=== PATIENT | male | born 1955 | race Caucasian/White ===

== ENCOUNTER 2016-12-03 14:41 | Emergency (ER) | payer OTHER ==
[~2016-12-03 14:41] MED LIST: ALBUTEROL MININEB NEB; ALBUTEROL0.83 MG/ML INH; ALBUTEROL17 GM INH; CARAFATE PO; DELTASONE20 MG PO; DIURETIC; LASIX PO; LEVAQUIN PO; LEVAQUIN750 M1 PO; LISINOPRIL; LISINOPRIL PO; LORTAB 7.5-3251 EACH PO; OMEPRAZOLE PO; POTASSIUM CL PO; PREDNISONE PO; SYMBICORT80 INH; TRAZODONE PO; ZITHROMAX PO; ZOFRAN ODT4 MG/UDTAB PO
== END 2016-12-03 15:55 | disposition left against medical advice (07) ==
LOC: SED 14:41
DX: Z53.21 Procedure and treatment not carried out due to patient leaving prior to being seen by health care provider (principal)

== ENCOUNTER 2016-12-04 20:43 | Inpatient (IN) | payer OTHER ==
--- NOTE | ~2016-12-04 | DS ---
Unit #: [id number] #: [id number] Patient: KANG KAPOOR [id number] [address] [place], [place] [address] [id number] MR#: [id number] NAME: KANG KAPOOR ROOM: 55 Age: 61 Sex: M Admission Date: 12/04/2016 : 1955 Discharge Date: 12/06/2016 Attending Physician: Enzo Moreau M.D. Primary Care Physician: Rosa Elena Melgoza Aprn DISCHARGE SUMMARY ADMITTING DIAGNOSIS Chest pain. FURTHER DIAGNOSES 1. Pulmonary embolism. 2. Rupture of left lung head of biceps. CONSULTANTS 1. Dr. Pleitez. 2. Orthopedic Service - seen by Rosie Chowdary, nurse practitioner. HISTORY OF PRESENTING ILLNESS The patient is a 61-year-old man with a past medical history of congestive heart failure, status post permanent pacemaker, history of peptic ulcer, GERD, presented to the emergency room with a chief complaint of shortness of breath and chest pain. He had a CT which showed bilateral PE. He was admitted for further care. Initially, he was started on anticoagulation with Lovenox and he was transitioned with oral anticoagulation with Xarelto. I spoke to him at length and explained to him about the risks and benefits of anticoagulation and also about the complications of anticoagulation. He understands and he agrees to follow. We requested pulmonary to evaluate the patient and they recommended to continue the anticoagulation and will (1) until followup. He was complaining of left arm pain and he had a biceps rupture. Orthopedic surgery evaluated him and recommended conservative measures and no surgery. No weight lifting. I spoke with him and requested him to avoid lifting weight in the left arm and follow with doctor as an outpatient. He is doing clinically better. He will be discharged home today. Instructed to follow with pulmonary doctor as an outpatient. On the day of the discharge, his physical examination: VITAL SIGNS - temperature 98.5, pulse rate 104, respirations 19, blood pressure 104/79. The patient is alert and oriented x3, lying in the bed in no acute distress. HEENT - normocephalic, atraumatic. No icterus. PERRLA. Extraocular muscles intact. NECK - supple. No JVD. HEART - S1, S2. Regular rate and rhythm. CHEST - bilateral equal air entry, clear to auscultation. ABDOMEN - soft, nontender. EXTREMITIES - no edema. Normal pulses. DISCHARGE MEDICATIONS 1. Xarelto 15 mg p.o. twice a day for three weeks followed by 20 mg once a day. 2. Zofran 4 mg q.6 p.r.n. for nausea and vomiting. Unit #: [id number] #: [id number] Patient: WHITE,KANG 3. Prednisone 20 mg p.o. with a tapering dose. He has at home. 4. Albuterol nebulizations q.4 p.r.n. shortness of breath. 5. Trazodone 50 mg daily. 6. Dulera 100/5 mcg inhalation twice daily. 7. Lasix 40 mg twice a day. 8. Lisinopril 2.5 mg daily. 9. Lortab 7.5/325 one tab p.o. q.4 p.r.n. Kindly note - we are not giving any new prescription. He will be taking his home medication. 10. Protonix 40 mg daily. 11. KCl 20 mEq p.o. twice a day. He was instructed to follow with his primary care in one to two weeks. Total time spent in his care - 28 minutes. Dictated by..Ravi Moreau M.D. Marilee TD: 12/07/2016 11:19 JOB #: [id number] DISCHARGE SUMMARY X X DISCHARGE SUMMARY
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
--- NOTE | ~2016-12-04 | CR72 ---
[facility] A Service of [facility] & [facility] RADIOLOGY TEXT RESULTS PATIENT: KANG KAPOOR LOCATION: [place] [address]- : [birth year] UNIT #: [id number] AGE: [address]: Enzo Moreau MD SEX: M ORDER DR: [id number] [facility] [address] [place], [place] [address] [id number] I MR#: [id number] Acc #: [id number] NAME: KANG KAPOOR : 1955 SEX: M STUDY DATE/TIME: 12/04/2016 16:34 UNIT: [facility] ROOM: [facility] STUDY DESCRIPTION: CR Chest Single View Portable Attending Physician: Enzo Moreau M.D. Ordering Physician: Matthias Ring M.D. Primary Care Physician: Rosa Elena Melgoza Aprn MEDICAL IMAGING REPORT This report is preliminary unless electronic signature is present EXAM Portable chest INDICATIONS Chest pain for 3 days. Pacemaker placed 2 weeks ago. COMPARISON 11/14/2016 FINDINGS A portable view of the chest is obtained. The heart size is upper limits of normal. There is mild interstitial prominence throughout the lungs, unchanged from the prior study. The dual-lead pacemaker seems to be in good position. IMPRESSION Mild cardiomegaly and mild interstitial prominence. No focal infiltrates are visible. Dictated by... Louis Powers M.D. THIS IS AN ELECTRONICALLY VERIFIED REPORT Louis Powers M.D. at 12/05/2016 2:08 PM FEL/psc TD: 12/05/2016 03:33 JOB #: [id number] MEDICAL IMAGING REPORT COPY
--- NOTE | ~2016-12-04 | US84 ---
[id number] [facility]. [facility] [address] [place], [place] [address] [id number] I MR#: [id number] Acc #: [id number] NAME: KANG KAPOOR : 1955 SEX: M STUDY DATE/TIME: 12/05/2016 7:24 UNIT: C5B ROOM: 551 STUDY DESCRIPTION: US LE Veins Complete Ricky Stdy Attending Physician: Enzo Moreau M.D. Ordering Physician: Arabella Baca M.D. Primary Care Physician: Rosa Elena Melgoza Aprn MEDICAL IMAGING REPORT This report is preliminary unless electronic signature is present EXAM Bilateral lower extremity venous Doppler. INDICATION Shortness of air for the past 2 days. Bilateral pulmonary embolus. Observation for DVT. PROCEDURE Lowe-scale, color Doppler, spectral imaging deep veins of the right and left leg. COMPARISON None FINDINGS Deep veins in the right and left leg compress normally and show normal color Doppler and spectral characteristics. There is a 2.8 x 1.6 x 0.9 cm Phipps cyst in the left popliteal fossa. Dictated by... Wilmer Oquendo M.D. THIS IS AN ELECTRONICALLY VERIFIED REPORT Wilmer Oquendo M.D. at 12/06/2016 6:56 AM JUAN M/narayan TD: 12/05/2016 12:00 JOB #: [id number] MEDICAL IMAGING REPORT COPY
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
--- NOTE | ~2016-12-04 | CT16 ---
[facility] A Service of [facility] & [facility] RADIOLOGY TEXT RESULTS PATIENT: KANG KAPOOR LOCATION: [facility] 55- : [birth year] UNIT #: [id number] AGE: [address]: Enzo Moreau MD SEX: M ORDER DR: [id number] [facility] [address] [place], [place] [address] [id number] I MR#: [id number] Acc #: [id number] NAME: KANG KAPOOR : 1955 SEX: M STUDY DATE/TIME: 12/04/2016 18:26 UNIT: [facility] ROOM: [facility] STUDY DESCRIPTION: CT Angio Chest for PE Attending Physician: Enzo Moreau M.D. Ordering Physician: Matthias Ring M.D. Primary Care Physician: Rosa Elena Melgoza Aprn MEDICAL IMAGING REPORT This report is preliminary unless electronic signature is present EXAM CT angiogram chest with IV contrast HISTORY Cough, chest pain and chest tightness for 2 weeks. Recent pneumonia. Elevated D-dimer. TECHNIQUE This CT exam was performed with one or more of the following radiation dose reduction techniques: automatic exposure control, adjustment of mA and/or kV according to patient size, and iterative reconstruction. FINDINGS IV contrast enhanced CT angiogram of the chest was performed with 3-D reconstructions. There is a small to moderate-sized right pleural effusion and minimal left pleural effusion. There is loxw-sd-zxrehuis subsegmental atelectasis in the inferior right middle lobe and in the posterolateral left lower lobe. Subsegmental patchy airspace and interstitial infiltrate in the inferolateral right lower lobe. Considerations include pneumonia but this is a nonspecific finding. There is mild linear atelectasis or scarring in the lateral right upper lobe extending nearly to the right apex. There are small bilateral multifocal lower lobe pulmonary emboli. No evidence of right heart strain. The right ventricle to left ventricle ratio is 0.7. Hkdk-ly-vtswipuo multichamber cardiac enlargement. Normal caliber thoracic aorta. IMPRESSION 1. Small multifocal bilateral lower lobe pulmonary emboli. 2. No evidence of right heart strain. The right ventricle to left ventricle diameter ratio is 0.7. [facility] A Service of [facility] & [facility] RADIOLOGY TEXT RESULTS PATIENT: KANG KAPOOR LOCATION: [facility] 551-01 : [birth year] UNIT #: [id number] AGE: [address]: Enzo Moreau MD SEX: M ORDER DR: 3. Small to moderate-sized right pleural effusion and minimal left pleural effusion. 4. Patchy subsegmental airspace and interstitial infiltrate in the posterolateral right lower lobe inferiorly. Although nonspecific, considerations include pneumonia. 5. Multifocal subsegmental atelectasis in the right middle lobe and in the posterolateral left lower lobe. Additional mild linear atelectasis or scarring in the lateral right upper lobe. 1. Dictated by... Mitchell Padilla M.D. THIS IS AN ELECTRONICALLY VERIFIED REPORT Mitchell Padilla M.D. at 12/05/2016 3:55 PM FAWN/rajni TD: 12/05/2016 08:30 JOB #: [id number] MEDICAL IMAGING REPORT COPY
--- NOTE | ~2016-12-04 | CO ---
Unit #: [id number] #: [id number] Patient: KANG KAPOOR [id number] [address] [place], [place] [address] [id number] I MR#: [id number] NAME: KANG KAPOOR ROOM: 55 Age: 61 Sex: M Admission Date: 12/04/2016 : 1955 Attending Physician: Enzo Moreau M.D. Primary Care Physician: Rosa Elena Melgoza Aprn CONSULTATION REPORT REASON FOR CONSULTATION Pulmonary embolism. HISTORY OF PRESENT ILLNESS This 61-year-old male who has a history of congestive heart failure with ejection fraction of 15%, pulmonary hypertension, status post cardiac cath recently and was admitted at [facility] on October 31 had a [employer] biventricular ICD placement and patient came in with a complaint of shortness of breath and chest pain and CT PE protocol was done last night which has shown small multifocal bilateral lower lobe pulmonary emboli and no evidence of right heart strain and small to moderate right-sided pleural effusion, patchy subsegmental airspace interstitial infiltrates, multifocal subsegmental atelectasis right middle lobe. I am seeing the patient at the bedside. He denies any headache, blurry vision. No chest pain at present. Mild shortness of breath and exertional dyspnea. He never smoked according to patient. Right and left lower extremity Doppler was negative. PAST MEDICAL HISTORY 1. Congestive heart failure, EF of 15%. 2. Pulmonary hypertension. 3. Nonischemic cardiomyopathy. 4. Medical noncompliance. 5. Substance abuse. 6. Dysphagia. 7. Recent community-acquired pneumonia and pleurisy. 8. Chronic pain. 9. Abnormal LFTs. 10. Hyperkalemia. 11. Acute kidney injury. 12. Hyponatremia. SOCIAL HISTORY Nonsmoker, no alcohol, no drug abuse. FAMILY HISTORY None as per record. MEDICATION Medication includes oxycodone, albuterol, aspirin, Bumex, Coreg, Keflex, ranitidine, spironolactone and sucralfate from previous admission. PHYSICAL EXAMINATION Unit #: [id number] #: [id number] Patient: KANG KAPOOR VITAL SIGNS: Temperature 98. Pulse 87. Respiration 12. Blood pressure 130/70. NEUROLOGICAL: Awake, alert and oriented. No neuro deficit. HEENT: PERRLA, EOMI. NECK: Supple. No JVD. CHEST: Bilateral air entry. Bilateral mild rhonchi. GI: Nontender, soft, bowel sounds positive. EXTREMITIES: No edema. SKIN: No rashes. No ulcer. LYMPHATIC: No lymphadenopathy. ASSESSMENT 1. Bilateral pulmonary embolism. 2. Congestive heart failure. 3. Pulmonary hypertension. PLAN Plan is to continue Lovenox, switch to Eliquis 10 mg b.i.d. for two weeks and then 5 mg b.i.d. The patient is hemodynamically stable. Will continue to monitor. Will need a sleep study as an outpatient. Thank you very much for this consultation. Dictated by... Mariam Cook/markie TD: 12/05/2016 16:37 JOB #: [id number] CONSULTATION REPORT X Peggy Pleitez MD X CONSULTATION REPORT
[2016-12-04 16:30] LABS: POC - CKMB 2.9 ng/mL (0.0-7.9); POC - TROPONIN <0.05 ng/mL (<=0.05)
[2016-12-04 16:57] LABS: BASOPHIL% 0.4 % (0-2.5); DIFF IND NO; EOSINOPHIL# 0.1 X10e3 (0-0.7); EOSINOPHIL% 1.5 % (0.0-7.0); HEMATOCRIT 32.4 % (38.0-50.0); HEMOGLOBIN 10.5 gm/dL (13.0-16.0); LYMPHOCYTE% 11.3 % (17.0-45.0); MEAN CELL VOLUME 91.9 FL (83-96); MEAN CORPUSCULAR HEMOGLOBIN 29.8 PG (28-34); MEAN CORPUSCULAR HGB CONC 32.5 g/dL (30-36); MEAN PLATELET VOLUME 7.8 FL (6.5-11.5); MONOCYTE# 0.9 X10e3 (0-1.0); MONOCYTE% 9.8 % (3.0-12.0); NEUTROPHIL# 7.1 X10e3 (1.5-7.1); PLATELET COUNT 301 X10e3 (140-420); RED BLOOD COUNT 3.53 X10e (3.90-5.60); RED CELL DISTRIBUTION WIDTH 17.6 % (11.0-15.5); WHITE BLOOD COUNT 9.2 X10e3 (4.0-10.5)
[2016-12-04 17:18] LABS: BLOOD UREA NITROGEN 13 mg/dL (9-23); BUN/CREATININE RATIO 21.66; CALCIUM SERUM 8.2 mg/dL (8.4-10.2); CARBON DIOXIDE 27 mmol/L (22-31); CHLORIDE 101 mmol/L (100-111); CREATININE SERUM 0.6 mg/dL (0.6-1.4); GLOM FILT RATE Estimated ABOVE60 mL/min (>60); GLUCOSE FASTING 96 mg/dL (70-110); POTASSIUM 4.5 mmol/L (3.5-5.1); SODIUM 133 mmol/L (135-145)
[2016-12-05 06:04] LABS: BASOPHIL# 0.1 X10e3 (0-0.3); BASOPHIL% 0.5 % (0-2.5); HEMATOCRIT 33.8 % (38.0-50.0); HEMOGLOBIN 10.9 gm/dL (13.0-16.0); LYMPHOCYTE# 0.7 X10e3 (1.0-3.5); LYMPHOCYTE% 6.9 % (17.0-45.0); MEAN CELL VOLUME 91.3 FL (83-96); MEAN CORPUSCULAR HEMOGLOBIN 29.5 PG (28-34); MEAN CORPUSCULAR HGB CONC 32.3 g/dL (30-36); MEAN PLATELET VOLUME 7.4 FL (6.5-11.5); MONOCYTE# 0.4 X10e3 (0-1.0); MONOCYTE% 4.3 % (3.0-12.0); NEUTROPHIL# 8.8 X10e3 (1.5-7.1); NEUTROPHIL% 88.3 % (40-75); PLATELET COUNT 313 X10e3 (140-420); RED CELL DISTRIBUTION WIDTH 17.7 % (11.0-15.5); WHITE BLOOD COUNT 9.9 X10e3 (4.0-10.5)
[2016-12-05 06:15] LABS: INR 1.1; PARTIAL THROMBOPLASTIN TIME 30.9 SECONDS (23.5-31.3)
[2016-12-05 06:20] LABS: DIFF IND NO
[2016-12-05 06:42] LABS: ALBUMIN SERUM 2.7 g/dL (3.5-5.0); ALKALINE PHOSPHATASE 308 U/L (32-92); ALT (SGPT) 21 U/L (10-40); AST (SGOT) 21 U/L (10-42); BILIRUBIN,TOTAL 1.7 mg/dL (0.2-2.0); BLOOD UREA NITROGEN 12 mg/dL (9-23); BUN/CREATININE RATIO 17.14; CALCIUM SERUM 8.9 mg/dL (8.4-10.2); CARBON DIOXIDE 25 mmol/L (22-31); CHLORIDE 106 mmol/L (100-111); CREATININE SERUM 0.7 mg/dL (0.6-1.4); GLOM FILT RATE Estimated ABOVE60 mL/min (>60); GLUCOSE FASTING 138 mg/dL (70-110); PROTEIN TOTAL SERUM 6.9 g/dL (6.0-8.3); SODIUM 140 mmol/L (135-145)
[2016-12-05 23:45] LABS: AMPHETAMINE NEG (NEG); BARBITURATES NEG (NEG); BENZODIAZEPINES NEG (NEG); COCAINE NEG (NEG); MARIJUANA NEG (NEG); OPIATES POS (NEG); TRICYCLIC ANTIDEPRESSANTS NEG (NEG); U METHADONE NEG (NEG)
[2016-12-06 07:25] LABS: HEMATOCRIT 30.3 % (38.0-50.0); HEMOGLOBIN 9.8 gm/dL (13.0-16.0); MEAN CORPUSCULAR HEMOGLOBIN 29.4 PG (28-34); MEAN CORPUSCULAR HGB CONC 32.3 g/dL (30-36); MEAN PLATELET VOLUME 7.5 FL (6.5-11.5); RED BLOOD COUNT 3.32 X10e (3.90-5.60); RED CELL DISTRIBUTION WIDTH 17.7 % (11.0-15.5); WHITE BLOOD COUNT 9.1 X10e3 (4.0-10.5)
[2016-12-06 07:57] LABS: BLOOD UREA NITROGEN 18 mg/dL (9-23); CALCIUM SERUM 8.2 mg/dL (8.4-10.2); CARBON DIOXIDE 27 mmol/L (22-31); CHLORIDE 104 mmol/L (100-111); CREATININE SERUM 0.8 mg/dL (0.6-1.4); GLOM FILT RATE Estimated ABOVE60 mL/min (>60); GLUCOSE FASTING 95 mg/dL (70-110); POTASSIUM 4.6 mmol/L (3.5-5.1); SODIUM 132 mmol/L (135-145)
[2016-12-06] MEDS ORDERED: DULERA 100 MCG/13 GM INH (17:10)
[2016-12-06] MEDS ORDERED: XARELTO15 MG PO (17:11)
[2016-12-06] MEDS ORDERED: XARELTO20 MG PO (17:11)
[2016-12-06] MEDS ORDERED: ACETAMINOPHEN650 M4 PO (17:24)
[2016-12-06] MEDS ORDERED: LASIX20 MG PO (19:48)
== END 2016-12-06 20:21 | disposition home or self-care (01) | DRG 176 ==
LOC: CED 20:43 → CEDOF 21:40 → C5B 22:25
PROVIDERS: Emergency Medicine; Internal Medicine
PROC: B32TYZZ Computerized Tomography (CT Scan) of Left Pulmonary Artery using Other Contrast (ICD-10-PCS; principal; 2016-12-04)
PROC: B32SYZZ Computerized Tomography (CT Scan) of Right Pulmonary Artery using Other Contrast (ICD-10-PCS; 2016-12-04)
DX: I26.99 Other pulmonary embolism without acute cor pulmonale (principal); I11.0 Hypertensive heart disease with heart failure; I50.22 Chronic systolic (congestive) heart failure; I42.8 Other cardiomyopathies; Z95.810 Presence of automatic (implantable) cardiac defibrillator; K21.9 Gastro-esophageal reflux disease without esophagitis; I27.2 Other secondary pulmonary hypertension; G47.33 Obstructive sleep apnea (adult) (pediatric); Z91.19 Patient's noncompliance with other medical treatment and regimen; Z79.82 Long term (current) use of aspirin; S46.112A Strain of muscle, fascia and tendon of long head of biceps, left arm, initial encounter
CPT/HCPCS: 36415; 71010; 71275; 80048; 80053; 80307; 82553; 83880; 84484; 85025; 85027; 85379; 85610; 85730; 93970; 94640; 94664; 94760; 96372; 99285; J1650; Q9967

== ENCOUNTER 2016-12-22 22:53 | Emergency (ER) | payer OTHER ==
--- NOTE | ~2016-12-22 | CR63 ---
[facility] A Service of [facility] RADIOLOGY TEXT RESULTS PATIENT: KANG KAPOOR LOCATION: [facility] : 51 UNIT #: [id number] AGE: [address]: Matthias Ring MD SEX: M ORDER DR: [id number] [facility] [address] [place], [place] [address] [id number] MR#: [id number] Acc #: [id number] NAME: KANG KAPOOR : 1955 SEX: M STUDY DATE/TIME: 12/22/2016 19:44 UNIT: [facility] ROOM: STUDY DESCRIPTION: CR Chest 2 View Attending Physician: Matthias Ring M.D. Ordering Physician: Magdiel Geller D.O. Primary Care Physician: Rosa Elena Melgoza MEDICAL IMAGING REPORT This report is preliminary unless electronic signature is present EXAM Two-view chest HISTORY 61-year-old male history of CHF, spitting up blood for 2 days and COMPARISON 12/04/2016 FINDINGS 2 views of the chest demonstrate pulmonary hyperinflation and patchy hyperlucency compatible with underlying emphysema. There is loss of the right hemidiaphragm, blunting of the right CP angle compatible small right pleural effusion. Probable small amount of left pleural fluid. No definite airspace disease or consolidation. Stable cardiomegaly. Dual lead pacemaker noted. No visible pneumothorax. IMPRESSION Evidence of diffuse lung disease probably representing underlying emphysema with small bilateral pleural effusions right greater than left. Previous study on 12/04/2016 demonstrated extensive airspace disease though this appears less prominent on today's study and no definite consolidative process is seen. Dictated by... Bhavik Patiño M.D. THIS IS AN ELECTRONICALLY VERIFIED REPORT Bhavik Patiño M.D. at 12/23/2016 10:52 PM JMS/to TD: 12/23/2016 12:40 JOB #: [id number] [facility] A Service [facility] RADIOLOGY TEXT RESULTS PATIENT: KANG KAPOOR LOCATION: [facility] : 51 UNIT #: [id number] AGE: [address]: Matthias Ring MD SEX: M ORDER DR: MEDICAL IMAGING REPORT Page 1 of 1 COPY
[2016-12-22 18:34] LABS: BASOPHIL# 0.1 X10e3 (0-0.3); EOSINOPHIL# 0.1 X10e3 (0-0.7); EOSINOPHIL% 1.8 % (0.0-7.0); HEMATOCRIT 29.7 % (38.0-50.0); HEMOGLOBIN 9.5 gm/dL (13.0-16.0); LYMPHOCYTE# 0.8 X10e3 (1.0-3.5); MEAN CELL VOLUME 93.8 FL (83-96); MONOCYTE# 0.4 X10e3 (0-1.0); MONOCYTE% 7.3 % (3.0-12.0); NEUTROPHIL# 4.4 X10e3 (1.5-7.1); NEUTROPHIL% 75.9 % (40-75); PLATELET COUNT 233 X10e3 (140-420); RED BLOOD COUNT 3.16 X10e (3.90-5.60); RED CELL DISTRIBUTION WIDTH 19.3 % (11.0-15.5); WHITE BLOOD COUNT 5.8 X10e3 (4.0-10.5)
[2016-12-22 18:36] LABS: DIFF IND NO
[2016-12-22 18:59] LABS: ALBUMIN SERUM 3.4 g/dL (3.5-5.0); BUN/CREATININE RATIO 17.5; CALCIUM SERUM 8.6 mg/dL (8.4-10.2); CREATININE SERUM 1.2 mg/dL (0.6-1.4); POTASSIUM 4.6 mmol/L (3.5-5.1); PROTEIN TOTAL SERUM 7.1 g/dL (6.0-8.3)
[2016-12-22 19:14] LABS: INR 2.6; PARTIAL THROMBOPLASTIN TIME 38.9 SECONDS (23.5-31.3)
[2016-12-22 19:17] LABS: PROTHROMBIN TIME (PATIENT) 27.8 SECONDS (9.6-11.5)
[~2016-12-22 22:53] MED LIST changes: +ACETAMINOPHEN650 M4 PO; +DULERA 100 MCG/13 GM INH; +LASIX20 MG PO; +XARELTO15 MG PO; +XARELTO20 MG PO
== END 2016-12-22 23:18 | disposition home or self-care (01) ==
LOC: CED 22:53
PROVIDERS: Emergency Medicine
DX: J20.9 Acute bronchitis, unspecified (principal); D64.9 Anemia, unspecified; K21.9 Gastro-esophageal reflux disease without esophagitis; Z91.018 Allergy to other foods; I50.9 Heart failure, unspecified
CPT/HCPCS: 36415; 71020; 80053; 85025; 85610; 85730; 99283

== ENCOUNTER 2016-12-26 22:05 | Emergency (ER) | payer OTHER ==
--- NOTE | ~2016-12-26 | CR72 ---
[facility] A Service of [facility] RADIOLOGY TEXT RESULTS PATIENT: KANG KAPOOR LOCATION: SED : 53 UNIT #: [id number] AGE: [address]: Abner Biswas MD SEX: M ORDER DR: [id number] [place] [id number] E MR#: [id number] Acc #: [id number] NAME: KANG KAPOOR : 1955 SEX: M STUDY DATE/TIME: 12/26/2016 23:24 UNIT: SED ROOM: STUDY DESCRIPTION: CR Chest Single View Portable Attending Physician: Abner Biswas M.D. Ordering Physician: Abner Biswas M.D. Primary Care Physician: Rosa Elena Melgoza MEDICAL IMAGING REPORT This report is preliminary unless electronic signature is present. EXAM Frontal chest, 12/26/2016 INDICATIONS 61-year-old male with shortness of air, congestive heart failure. Back and stomach pain 3 days. TECHNIQUE Frontal chest compared with 12/22/2016 FINDINGS Left-sided pacemaker/defibrillator is unchanged. The heart is enlarged but stable. Trace left and small right pleural effusions. There is compressive atelectasis or pneumonia in the right lung base. There is indistinctness of the interstitium with the suggestion of some faint Cuco B lines. Correlate with signs or symptoms of mild volume overload and interstitial edema. Background changes of pulmonary hyperinflation. There is old healed granulomatous disease. No pneumothorax. IMPRESSION 1. Cardiomegaly and imaging findings that may reflect a mild element of vascular congestion and interstitial edema. Correlate with volume status. 2. Trace left and small right pleural effusions with compressive atelectasis or pneumonia in the right lung base. Dictated by... Maxwell Kennedy M.D. THIS IS AN ELECTRONICALLY VERIFIED REPORT [facility] A Service of [facility] RADIOLOGY TEXT RESULTS PATIENT: KANG KAPOOR LOCATION: SED : 53 UNIT #: [id number] AGE: [address]: Abner Biswas MD SEX: M ORDER DR: Maxwell Kennedy M.D. at 12/27/2016 6:24 AM SHEKHAR/geovanni TD: 12/27/2016 05:50 JOB #: [id number] MEDICAL IMAGING REPORT Page 1 of 1
[2016-12-26] MEDS ORDERED: XARELTO15 MG PO (22:08)
[2016-12-26] MEDS ORDERED: ZESTRIL2.5 M1 PO (22:09)
[2016-12-26] MEDS ORDERED: OMEPRAZOLE40 M1 PO (22:09)
[2016-12-26] MEDS ORDERED: HYDROCODONE/APA1 T16 PO (22:10)
[2016-12-26] MEDS ORDERED: VIBRAMYCIN100 M1 PO (22:11)
[2016-12-26] MEDS ORDERED: POTASSIUM CHLO10 MEQ PO (22:11)
[2016-12-26] MEDS ORDERED: LASIX20 MG PO (22:12)
[2016-12-26 23:02] LABS: BASOPHIL# 0.1 X10e3 (0-0.3); BASOPHIL% 1.4 % (0-2.5); EOSINOPHIL# 0.1 X10e3 (0-0.7); EOSINOPHIL% 2.7 % (0.0-7.0); HEMATOCRIT 35.1 % (38.0-50.0); HEMOGLOBIN 11.5 gm/dL (13.0-16.0); LYMPHOCYTE# 1.1 X10e3 (1.0-3.5); LYMPHOCYTE% 22.4 % (17.0-45.0); MEAN CELL VOLUME 94.1 FL (83-96); MEAN CORPUSCULAR HEMOGLOBIN 30.8 PG (28-34); MEAN CORPUSCULAR HGB CONC 32.7 g/dL (30-36); MEAN PLATELET VOLUME 8.1 FL (6.5-11.5); MONOCYTE# 0.4 X10e3 (0-1.0); MONOCYTE% 8.2 % (3.0-12.0); NEUTROPHIL# 3.1 X10e3 (1.5-7.1); NEUTROPHIL% 65.3 % (40-75); PLATELET COUNT 240 X10e3 (140-420); RED BLOOD COUNT 3.73 X10e (3.90-5.60); RED CELL DISTRIBUTION WIDTH 20.5 % (11.0-15.5); WHITE BLOOD COUNT 4.8 X10e3 (4.0-10.5)
[2016-12-26 23:03] LABS: DIFF IND NO
[2016-12-26 23:08] LABS: INR 4.3; PROTHROMBIN TIME (PATIENT) 49.1 SECONDS (9.5-12.4)
[2016-12-26 23:15] LABS: PARTIAL THROMBOPLASTIN TIME 42.5 SECONDS (25.6-38.1)
[2016-12-26 23:16] LABS: POC - CKMB 7.3 ng/mL (0.0-7.9)
[2016-12-26 23:17] LABS: POC - TROPONIN <0.05 ng/mL (<=0.05)
[2016-12-26 23:17] LABS: ALBUMIN SERUM 3.9 g/dL (3.5-5.0); BILIRUBIN, DIRECT 0.5 mg/dL (0.0-0.2); BILIRUBIN,INDIRECT 1.4 mg/dL (0.0-0.9); BILIRUBIN,TOTAL 1.9 mg/dL (0.2-2.0); BUN/CREATININE RATIO 20.83; CALCIUM SERUM 9.1 mg/dL (8.4-10.2); CREATININE SERUM 1.2 mg/dL (0.6-1.4); POTASSIUM 5.2 mmol/L (3.5-5.1); PROTEIN TOTAL SERUM 7.6 g/dL (6.0-8.3)
[2016-12-27 00:06] LABS: URINE APPEARANCE CLEAR; URINE BILIRUBIN NEG (NEG); URINE BLOOD NEG (NEG); URINE COLOR YELLOW; URINE GLUCOSE NEG (NORM); URINE KETONE NEG (NEG); URINE LEUKOCYTE ESTERASE NEG (NEG); URINE NITRATE NEG (NEG); URINE PH 5.5 (5-8); URINE PROTEIN NEG (NEG); URINE UROBILINOGEN 0.2 MG/DL (NORM)
[2016-12-27 00:07] LABS: MICRO INDICATED? NO; URINE SOURCE CLEAN CATCH
[2016-12-27 00:18] LABS: AMPHETAMINE NEG (NEG); BARBITURATES NEG (NEG); BENZODIAZEPINES NEG (NEG); COCAINE NEG (NEG); MARIJUANA NEG (NEG); OPIATES POS (NEG); TRICYCLIC ANTIDEPRESSANTS NEG (NEG); U METHADONE NEG (NEG)
== END 2016-12-27 02:41 | disposition home or self-care (01) ==
LOC: SED 22:05
PROVIDERS: Emergency Medicine
DX: I50.1 Left ventricular failure, unspecified (principal); K21.9 Gastro-esophageal reflux disease without esophagitis
CPT/HCPCS: 36415; 71010; 80048; 80076; 80307; 81003; 82553; 83690; 83874; 83880; 84484; 85025; 85610; 85730; 93005; 99284; J1940

== ENCOUNTER 2017-01-19 18:24 | Inpatient (IN) | payer OTHER ==
--- NOTE | ~2017-01-19 | CR72 ---
[facility] A Service of [facility] RADIOLOGY TEXT RESULTS PATIENT: KANG KAPOOR LOCATION: [place] [address] : 53 UNIT #: [id number] AGE: [address]: Marilin Pino MD SEX: M ORDER DR: [id number] [facility] [address] [place], [place] [address] [id number] MR#: [id number] Acc #: [id number] NAME: KANG KAPOOR : 1955 SEX: M STUDY DATE/TIME: 01/19/2017 18:55 UNIT: CEDOF ROOM: 08545 STUDY DESCRIPTION: CR Chest Single View Portable Attending Physician: Ang Leger M.D. Ordering Physician: Matthias Ring M.D. Primary Care Physician: Rosa Elena Melgoza R.N. MEDICAL IMAGING REPORT This report is preliminary unless electronic signature is present EXAM Portable chest. HISTORY 61-year-old male, shortness of air beginning 9 months ago. Bilateral lower extremity edema beginning a month ago. COMPARISON 12/28/2016 FINDINGS Portable view of the chest demonstrates continued small right pleural effusion which may be slightly increased from the 12/28/2016 study. Stable cardiomegaly. Dual-lead pacemaker noted. Probably trace amount of left pleural fluid. Mild pulmonary vascular congestion. No pneumothorax. Dictated by... Bhavik Patiño M.D. THIS IS AN ELECTRONICALLY VERIFIED REPORT Bhavik Patiño M.D. at 01/20/2017 2:05 PM Randy TD: 01/19/2017 21:34 JOB #: [id number] MEDICAL IMAGING REPORT Page 1 of 1 COPY
--- NOTE | ~2017-01-19 | EKG ---
PATIENT: KANG KAPOOR UNIT #: [id number] Ventricular Rate: 68 BPM Atrial Rate: 68 BPM P-R Interval: 168 ms QRS Duration: 94 ms Q-T Interval: 446 ms QTC Calculation(Bezet): 474 ms P [place]: 64 degrees Calculated R [place]: -30 degrees Calculated T [place]: -9 degrees Diagnosis Line: Normal sinus rhythm Diagnosis Line: Possible Left atrial enlargement Diagnosis Line: Left axis deviation Diagnosis Line: ST and T wave abnormality, consider lateral ischemia Diagnosis Line: Prolonged QT Diagnosis Line: Abnormal ECG Diagnosis Line: When compared with ECG of 19-JAN-2017 18:23, Diagnosis Line: Borderline criteria for Anterior infarct are no Diagnosis Line: longer Present Diagnosis Line: ST now depressed in Anterior leads Diagnosis Line: Confirmed by THIAGO ROTHMAN MD ([id number]) on 01/21/2017 Diagnosis Line: 10:14:56 PM INTERPRETING MD: LORNA BALES
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
--- NOTE | ~2017-01-19 | US5 ---
[facility] A Service of [facility] RADIOLOGY TEXT RESULTS PATIENT: KANG KAPOOR LOCATION: [facility] 55- : 53 UNIT #: [id number] AGE: [address]: Maggy Dubon MD SEX: M ORDER DR: [id number] [place] [id number] [facility]. [place], [place] [address] [id number] I MR#: [id number] Acc #: [id number] NAME: KANG KAPOOR : 1955 SEX: M STUDY DATE/TIME: 01/21/2017 8:30 UNIT: [facility] ROOM: [facility] STUDY DESCRIPTION: US Abdominal Complete Attending Physician: Maggy Dubon M.D. Ordering Physician: Marizta Ulloa M.D. Primary Care Physician: Rosa Elena Melgoza R.N. MEDICAL IMAGING REPORT This report is preliminary unless electronic signature is present EXAM Abdominal ultrasound complete, 01/21/2017 INDICATION Abdominal pain for 9 months in a 61-year-old male. TECHNIQUE Sonographic imaging of the abdomen was performed. COMPARISON CT 12/29/2016 FINDINGS Visualized aspects of the pancreas are unremarkable. Significant portions were obscured by bowel gas and not seen or evaluated. Aorta and IVC unremarkable to the extent visualized. There is a small right-sided pleural effusion. The liver demonstrates no focal mass intrahepatic ductal dilatation or ascites. The liver measures 17.4 cm long axis. The right kidney and left kidney are both non-obstructed with the right measuring 10.6 cm long axis and the left 10.5 cm. No shadowing stone on either side. The spleen demonstrates granulomatous calcifications and measures 10.6 cm long axis. The extrahepatic common bile duct is dilated up to approximately 1.0 cm. The gallbladder demonstrates echogenic sludge but no shadowing stones within the lumen. No sonographic Eldridge's sign was described. The technologist has placed calipers upon the gallbladder wall suggestive of gallbladder wall thickening although measurements are felt to be artifactually increased due to inclusion of portions of the hepatic parenchyma. There is no distinct gallbladder wall thickening. No distinct ultrasound evidence of acute cholecystitis. IMPRESSION [facility] A Service of [facility] RADIOLOGY TEXT RESULTS PATIENT: KANG KAPOOR LOCATION: [facility] 557-01 : 53 UNIT #: [id number] AGE: [address]: Maggy Dubon MD SEX: M ORDER DR: 1. Small amount of sludge within the gallbladder. The gallbladder is otherwise unremarkable. 2. Extrahepatic biliary ductal dilatation of unclear etiology measuring up to a centimeter. No intrahepatic ductal dilatation. 3. Ultrasound of the abdomen is otherwise negative. Small right-sided pleural effusion. Dictated by... Maxwell Kennedy M.D. THIS IS AN ELECTRONICALLY VERIFIED REPORT Maxwell Kennedy M.D. at 01/21/2017 11:52 AM Angela TD: 01/21/2017 09:53 JOB #: [id number] MEDICAL IMAGING REPORT Page 1 of 1 COPY
--- NOTE | ~2017-01-19 | US84 ---
[id number] [facility]. [facility] [address] [place], [place] [address] [id number] I MR#: [id number] Acc #: [id number] NAME: KANG KAPOOR : 1955 SEX: M STUDY DATE/TIME: 01/21/2017 8:06 UNIT: C5B ROOM: 557 STUDY DESCRIPTION: US LE Veins Complete Ricky Stdy Attending Physician: Maggy Dubon M.D. Ordering Physician: Maritza Ulloa M.D. Primary Care Physician: Rosa Elena Melgoza MEDICAL IMAGING REPORT This report is preliminary unless electronic signature is present EXAM Bilateral lower extremity venous duplex 01/21/2017 HISTORY Bilateral leg pain for 9 months. Evaluate for deep vein thrombosis. TECHNIQUE Venous ultrasound examination of both lower extremities was performed using grayscale, spectral Doppler and color flow Doppler imaging. FINDINGS The examination is negative. There is no evidence of deep venous thrombus from the groin to the lower calf bilaterally. Visualized greater saphenous veins are also patent. IMPRESSION Negative examination. No evidence of lower extremity deep venous thrombosis. Dictated by... Edmundo Argueta M.D. THIS IS AN ELECTRONICALLY VERIFIED REPORT Edmundo Argueta M.D. at 01/22/2017 7:28 AM PATRICIO/rajni TD: 01/21/2017 09:33 JOB #: [id number] MEDICAL IMAGING REPORT Page 1 of 1 COPY
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
--- NOTE | ~2017-01-19 | EKG ---
PATIENT: KANG KAPOOR UNIT #: [id number] Ventricular Rate: 77 BPM Atrial Rate: 77 BPM P-R Interval: 160 ms QRS Duration: 104 ms Q-T Interval: 440 ms QTC Calculation(Bezet): 497 ms P [place]: 57 degrees Calculated R [place]: -36 degrees Calculated T [place]: 152 degrees Diagnosis Line: Normal sinus rhythm Diagnosis Line: Possible Left atrial enlargement Diagnosis Line: Left axis deviation Diagnosis Line: Possible Anterior infarct , age undetermined Diagnosis Line: T wave abnormality, consider lateral ischemia Diagnosis Line: Abnormal ECG Diagnosis Line: When compared with ECG of 26-DEC-2016 22:03, Diagnosis Line: (unconfirmed) Diagnosis Line: No significant change was found Diagnosis Line: Confirmed by THIAGO ROTHMAN MD ([id number]) on 01/19/2017 Diagnosis Line: 6:45:24 PM INTERPRETING MD: LORNA BALES
--- NOTE | ~2017-01-19 | DS ---
Unit #: [id number] #: [id number] Patient: KANG KAPOOR [id number] [address] [address] [id number] I MR#: [id number] NAME: KANG KAPOOR ROOM: 55 Age: 61 Sex: M Admission Date: 01/19/2017 : 1955 Discharge Date: 01/22/2017 Attending Physician: Maggy Dubon M.D. Primary Care Physician: Rosa Elena Melgoza, Windows Server Administrator DISCHARGE SUMMARY PRINCIPAL DIAGNOSES 1. Uuwpw-je-mteojbg systolic and diastolic congestive heart failure, ejection fraction 10% to 15%. 2. Acute kidney injury on chronic kidney disease stage 3. Discharge creatinine 1.4. 3. History of pulmonary embolism, maintained on anticoagulation. 4. Hypokalemia. 5. Chronic obstructive pulmonary disease. 6. Severe mitral regurgitation. 7. Severe tricuspid regurgitation. 8. Chronic abdominal pain. 9. Homelessness. CONSULTANTS 1. Dr. Farmer, cardiology. 2. Dr. Emerson, nephrology. PROCEDURES 1. Two-dimensional echocardiogram on January 20, 2017 with ejection fraction of 10% to 15%. Significant right ventricular volume overload. Grade 2 diastolic dysfunction noted. Elevated right ventricular systolic pressure of 35 mmHg. Severe mitral regurgitation and tricuspid regurgitation noted. 2. Abdominal ultrasound January 21, 2017 with small amount of sludge within the gallbladder. Extrahepatic biliary ductal dilatation noted. 3. Bilateral lower extremity venous Doppler is negative for DVT. 4. Chest x-ray on January 19, 2017 with cardiomegaly and trace left pleural fluid. CLINICAL HISTORY AND HOSPITAL COURSE Mr. Kapoor is a 61-year-old male with a history of significant biventricular failure, who presents to the emergency department with increasing shortness of breath and lower extremity edema. Please refer to H and P for further details. BNP upon presentation was elevated at greater than 3000. Chest x-ray revealed some mild pulmonary edema. Creatinine was also significantly elevated at 2.1. Patient was admitted. In regard to the patient's CHF, he was placed on IV diuretics and dobutamine under the care of Cardiology. Patient had significant diuresis on these medications and his symptoms have resolved. On day of discharge BNP is now down to 780 but patient clinically has no evidence of fluid overload. Will continue medications as outlined below. Patient is status post AICD. I will note he had a few runs of nonsustained ventricular Unit #: [id number] #: [id number] Patient: KANG KAPOOR tachycardia as well but again is status post AICD. In regard to the patient's elevated creatinine Dr. Emerson was consulted. With increased cardiac output creatinine has now trended back down. On day of discharge creatinine is now 1.4. Patient will continue diuretics as an outpatient and follow up with Nephrology. Patient's other chronic conditions remain stable. He has chronic abdominal pain. It gets better or worse based upon his fluid status. His abdominal ultrasound was unremarkable. He will be discharged home today. DISCHARGE CONDITION Stable. DISCHARGE STATUS Discharge to home. DISCHARGE MEDICATIONS 1. Bumex 2 mg p.o. b.i.d. 2. Albuterol sulfate nebulizer solution 3 mL q.4 h. p.r.n. for shortness of breath. 3. Xarelto 15 mg daily. 4. Coreg 3.125 mg p.o. b.i.d. 5. Lisinopril 2.5 mg daily. 6. Zantac 150 mg daily. 7. Lortab 7.5/325 one tablet p.o. b.i.d. Number given 10. 8. Spironolactone 25 mg daily. 9. Omeprazole 40 mg daily. 10. Klor-Con 20 mEq p.o. daily. DISCHARGE INSTRUCTIONS 1. Patient was instructed to follow an 1800 mL fluid restricted diet, heart healthy diet otherwise. 2. He can increase his activity as tolerated. FOLLOWUP 1. The patient will follow up with Dr. Guaman on February 01 at 2:15 p.m. He should have repeat BMP at that time. 2. He will follow up with Nephrology per their recommendations. Dictated by... Maggy Dubon M.D. JENNY/markie TD: 01/22/2017 20:42 JOB #: [id number] Unit #: [id number] #: [id number] Patient: KANG KAPOOR DISCHARGE SUMMARY Page 1 of 1 X Maggy Dubon MD X DISCHARGE SUMMARY
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
[~2017-01-19 18:24] MED LIST changes: +HYDROCODONE/APA1 T16 PO; +OMEPRAZOLE40 M1 PO; +POTASSIUM CHLO10 MEQ PO; +VIBRAMYCIN100 M1 PO; +ZESTRIL2.5 M1 PO
[2017-01-19 19:03] LABS: POC - CKMB 7.7 ng/mL (0.0-7.9); POC - TROPONIN <0.05 ng/mL (<=0.05)
[2017-01-19 19:05] LABS: BASOPHIL# 0.1 X10e3 (0-0.3); BASOPHIL% 1.4 % (0-2.5); EOSINOPHIL# 0.1 X10e3 (0-0.7); EOSINOPHIL% 3.2 % (0.0-7.0); HEMATOCRIT 38.2 % (38.0-50.0); HEMOGLOBIN 12.3 gm/dL (13.0-16.0); LYMPHOCYTE# 0.7 X10e3 (1.0-3.5); LYMPHOCYTE% 18.7 % (17.0-45.0); MEAN CELL VOLUME 98.6 FL (83-96); MEAN CORPUSCULAR HEMOGLOBIN 31.8 PG (28-34); MEAN CORPUSCULAR HGB CONC 32.2 g/dL (30-36); MEAN PLATELET VOLUME 8.7 FL (6.5-11.5); MONOCYTE# 0.4 X10e3 (0-1.0); MONOCYTE% 9.8 % (3.0-12.0); NEUTROPHIL# 2.5 X10e3 (1.5-7.1); NEUTROPHIL% 66.9 % (40-75); PLATELET COUNT 188 X10e3 (140-420); RED BLOOD COUNT 3.87 X10e (3.90-5.60); RED CELL DISTRIBUTION WIDTH 20.5 % (11.0-15.5); WHITE BLOOD COUNT 3.8 X10e3 (4.0-10.5)
[2017-01-19 19:10] LABS: DIFF IND NO
[2017-01-19 19:15] LABS: INR 2.1; PROTHROMBIN TIME (PATIENT) 23.1 SECONDS (9.6-11.5)
[2017-01-19 19:23] LABS: ALBUMIN SERUM 3.5 g/dL (3.5-5.0); BILIRUBIN, DIRECT 0.6 mg/dL (0.0-0.2); BILIRUBIN,INDIRECT 1.9 mg/dL (0.0-0.9); BILIRUBIN,TOTAL 2.5 mg/dL (0.2-2.0); BUN/CREATININE RATIO 22.85; CALCIUM SERUM 8.4 mg/dL (8.4-10.2); CREATININE SERUM 2.1 mg/dL (0.6-1.4); GLOM FILT RATE Estimated 32.5 mL/min (>60); POTASSIUM 4.9 mmol/L (3.5-5.1); PROTEIN TOTAL SERUM 6.8 g/dL (6.0-8.3)
[2017-01-19] MEDS ORDERED: K-DUR20 ME1 PO (20:19)
[2017-01-19] MEDS ORDERED: ZESTRIL2.5 M1 PO (20:20)
[2017-01-19] MEDS ORDERED: ZANTAC150 MG PO (20:20)
[2017-01-19] MEDS ORDERED: XARELTO15 MG PO (20:20)
[2017-01-19] MEDS ORDERED: OMEPRAZOLE40 M1 PO (20:20)
[2017-01-19] MEDS ORDERED: BUMEX2 MG PO (20:33)
[2017-01-19] MEDS ORDERED: LORTAB 7.5-3251 EACH PO (20:35)
[2017-01-19] MEDS ORDERED: ALDACTONE PO (20:35)
[2017-01-19] MEDS ORDERED: COREG3.125 MG PO (20:35)
[2017-01-20] MEDS ORDERED: ALBUTEROL MININEB NEB (05:05)
[2017-01-20 13:24] LABS: %MB 6.3 % (0.0-4.0); MB 9.5 ng/ml
[2017-01-20 16:51] LABS: URINE APPEARANCE CLEAR; URINE BILIRUBIN NEG (NEG); URINE BLOOD NEG (NEG); URINE COLOR YELLOW; URINE GLUCOSE NEG (NEG); URINE KETONE NEG (NEG); URINE LEUKOCYTE ESTERASE NEG (NEG); URINE NITRATE NEG (NEG); URINE PROTEIN NEG (NEG); URINE SPECIFIC GRAVITY 1.007 (1.003-1.035); URINE UROBILINOGEN 0.2 MG/DL (NEG)
[2017-01-20 17:07] LABS: CREATININE,RANDOM URINE 29 mg/dL; TOTAL PROTEIN,RANDOM URINE <10 mg/dl (<10)
[2017-01-20 18:21] LABS: %MB 6.2 % (0.0-4.0); MB 8.8 ng/ml
[2017-01-21 06:29] LABS: HEMOGLOBIN 11.3 gm/dL (13.0-16.0); MEAN CELL VOLUME 97.4 FL (83-96); MEAN CORPUSCULAR HEMOGLOBIN 31.6 PG (28-34); MEAN CORPUSCULAR HGB CONC 32.4 g/dL (30-36); MEAN PLATELET VOLUME 8.5 FL (6.5-11.5); RED BLOOD COUNT 3.59 X10e (3.90-5.60); RED CELL DISTRIBUTION WIDTH 20.1 % (11.0-15.5)
[2017-01-21 06:55] LABS: BUN/CREATININE RATIO 24.7; CALCIUM SERUM 8.8 mg/dL (8.4-10.2); CREATININE SERUM 1.7 mg/dL (0.6-1.4); POTASSIUM 4.4 mmol/L (3.5-5.1)
[2017-01-21 07:10] LABS: CHOLESTEROL 97 mg/dL (0-200); HDL CHOLESTEROL 29 mg/dL (29-75); LDL CHOLESTEROL 58 mg/dL ([, -130]); LDL/HDL RATIO 2 RATIO (0-4); TRIGLYCERIDES 52 mg/dL (10-160)
[2017-01-22 06:28] LABS: BUN/CREATININE RATIO 23.57; CALCIUM SERUM 8.9 mg/dL (8.4-10.2); CREATININE SERUM 1.4 mg/dL (0.6-1.4); GLOM FILT RATE Estimated 53.1 mL/min (>60); MAGNESIUM 1.9 mg/dL (1.6-3.0); POTASSIUM 4.4 mmol/L (3.5-5.1)
== END 2017-01-22 15:58 | disposition home or self-care (01) | DRG 291 ==
LOC: CED 18:24 → CEDOF 21:00 → C5B 01-20 01:33
PROVIDERS: Emergency Medicine; Family Medicine; Internal Medicine; Nurse Practitioner
DX: I13.0 Hypertensive heart and chronic kidney disease with heart failure and stage 1 through stage 4 chronic kidney disease, or unspecified chronic kidney disease (principal); I50.23 Acute on chronic systolic (congestive) heart failure; I47.2 Ventricular tachycardia; N17.9 Acute kidney failure, unspecified; N18.3 Chronic kidney disease, stage 3 (moderate); I42.8 Other cardiomyopathies; Z95.810 Presence of automatic (implantable) cardiac defibrillator; K21.9 Gastro-esophageal reflux disease without esophagitis; Z87.11 Personal history of peptic ulcer disease; Z86.711 Personal history of pulmonary embolism; Z79.01 Long term (current) use of anticoagulants; R10.9 Unspecified abdominal pain; E87.6 Hypokalemia; J44.9 Chronic obstructive pulmonary disease, unspecified; J98.4 Other disorders of lung; Z59.0 Homelessness; D64.9 Anemia, unspecified; I08.1 Rheumatic disorders of both mitral and tricuspid valves
CPT/HCPCS: 36415; 71010; 76700; 80048; 80061; 80076; 81003; 82550; 82553; 82570; 83735; 83880; 84156; 84443; 84484; 85025; 85027; 85610; 89190; 93005; 93306; 93970; 94640; 94760; 97165; 99285; J1250

== ENCOUNTER → 2017-01-24 | Outpatient (CLI) | payer OTHER ==
[~2017-01-24] MED LIST changes: +ALDACTONE PO; +ALDACTONE25 MG PO; +BUMEX2 MG PO; +COREG3.125 MG PO; +K-DUR20 ME1 PO; +LINEZOLID600 MG PO; +STIOLTO RESPIMAT4 GM INH; +ZANTAC150 MG PO; +ZESTRIL2.5 MG PO; +ZYVOX600 MG PO
--- NOTE | ~2017-01-24 | CT57 ---
[facility] A Service of [facility] & [facility] RADIOLOGY TEXT RESULTS PATIENT: KANG KAPOOR [facility] UNIT #: [id number] AGE: [address]: Bill Morales MD SEX: M ORDER DR: [id number] [facility] [address]. [place], [place] [address] [id number] O MR#: [id number] Acc #: [id number] NAME: KANG KAPOOR : 1955 SEX: M STUDY DATE/TIME: 01/24/2017 14:25 UNIT: [facility] ROOM: STUDY DESCRIPTION: CT Chest Wo Cont Attending Physician: Bill Morales M.D. Referring Physician: Bill Morales M.D. Ordering Physician: Bill Morales M.D. Primary Care Physician: Rosa Elena Melgoza Aprn MEDICAL IMAGING REPORT This report is preliminary unless electronic signature is present EXAM High-resolution chest CT without contrast INDICATION Abnormal pulmonary function testing. Shortness of breath for 6 months. Congestive heart failure. TECHNIQUE CT of the chest was performed without contrast. Selected HRCT imaging was obtained. Imaging performed in the supine and prone positioning. This CT examination was performed with one or more of the following radiation dose reduction techniques: automatic exposure control, adjustment of mA and/or kV according to patient size, and iterative reconstruction. COMPARISON 12/04/2016. FINDINGS Since the prior study, the right pleural effusion has significantly decreased in size. There is a persistent small amount of pleural fluid on the right and trace amount of pleural fluid on the left. Cardiomegaly with ICD. There is scarring in the periphery of the right upper lobe. There is biapical scarring. Calcified granuloma in the right upper lobe. There is decreased atelectasis in the right middle lobe. There is a rounded parenchymal density adjacent to the pleural surface in the base of the right lower lobe likely reflecting rounded atelectasis. Selected HRCT imaging demonstrates no evidence of bronchiectasis or diffuse infiltrative lung disease. No suspicious lymphadenopathy. Limited imaging of the upper abdomen is unremarkable. Bone windows are unremarkable. IMPRESSION 1. Improved appearance of the chest since the most recent study with decrease in right-sided pleural effusion. Small persistent right STS. [facility] A Service of [facility] & [facility] RADIOLOGY TEXT RESULTS PATIENT: KANG KAPOOR LOCATION: [facility] : 51 UNIT #: [id number] AGE: [address]: Bill Morales MD SEX: M ORDER DR: pleural effusion and trace left pleural effusion remain. 2. There are scattered areas of atelectasis and scarring within the lungs. 3. No evidence of bronchiectasis or diffuse infiltrative lung disease. No honeycombing. 4. Cardiomegaly. Dictated by... Wilton Patiño M.D. THIS IS AN ELECTRONICALLY VERIFIED REPORT Wilton Patiño M.D. at 01/25/2017 9:30 AM Matthew TD: 01/25/2017 08:38 JOB #: [id number] MEDICAL IMAGING REPORT Page 1 of 1 COPY
== END | disposition home or self-care (01) ==
LOC: CCAT 13:28
DX: R06.00 Dyspnea, unspecified (principal); R94.2 Abnormal results of pulmonary function studies; I51.7 Cardiomegaly; J98.4 Other disorders of lung
CPT/HCPCS: 71250

== ENCOUNTER 2017-02-27 23:09 | Emergency (ER) | payer OTHER ==
[~2017-02-27 23:09] MED LIST changes: -ALDACTONE25 MG PO; -LINEZOLID600 MG PO; -STIOLTO RESPIMAT4 GM INH; -ZESTRIL2.5 MG PO; -ZYVOX600 MG PO
== END 2017-02-27 23:30 | disposition left against medical advice (07) ==
LOC: SED 23:09
DX: Z53.21 Procedure and treatment not carried out due to patient leaving prior to being seen by health care provider (principal)

== ENCOUNTER 2017-02-28 15:54 | Emergency (ER) | payer OTHER ==
[2017-02-28 17:15] LABS: BASOPHIL# 0.1 X10e3 (0-0.3); EOSINOPHIL# 0.1 X10e3 (0-0.7); EOSINOPHIL% 1.6 % (0.0-7.0); HEMATOCRIT 39.6 % (38.0-50.0); HEMOGLOBIN 13.2 gm/dL (13.0-16.0); LYMPHOCYTE# 0.8 X10e3 (1.0-3.5); LYMPHOCYTE% 9.8 % (17.0-45.0); MEAN CELL VOLUME 97.7 FL (83-96); MEAN CORPUSCULAR HEMOGLOBIN 32.6 PG (28-34); MEAN CORPUSCULAR HGB CONC 33.4 g/dL (30-36); MEAN PLATELET VOLUME 7.7 FL (6.5-11.5); MONOCYTE# 0.6 X10e3 (0-1.0); MONOCYTE% 7.7 % (3.0-12.0); NEUTROPHIL# 6.4 X10e3 (1.5-7.1); NEUTROPHIL% 79.9 % (40-75); PLATELET COUNT 209 X10e3 (140-420); RED BLOOD COUNT 4.05 X10e (3.90-5.60); RED CELL DISTRIBUTION WIDTH 15.3 % (11.0-15.5)
[2017-02-28 17:21] LABS: DIFF IND NO
[2017-02-28 17:23] LABS: POC - CKMB 2.3 ng/mL (0.0-7.9); POC - TROPONIN <0.05 ng/mL (<=0.05)
[2017-02-28 17:33] LABS: CALCIUM SERUM 8.7 mg/dL (8.4-10.2); CREATININE SERUM 1.2 mg/dL (0.6-1.4); POTASSIUM 3.6 mmol/L (3.5-5.1)
== END 2017-02-28 18:51 | disposition home or self-care (01) ==
LOC: SED 15:54
PROVIDERS: Physician Assistant
DX: L03.114 Cellulitis of left upper limb (principal); I50.9 Heart failure, unspecified; G40.909 Epilepsy, unspecified, not intractable, without status epilepticus; Z79.899 Other long term (current) drug therapy
CPT/HCPCS: 36415; 80048; 82553; 84484; 85025; 86140; 87040; 99283

== ENCOUNTER 2017-03-02 21:46 | Inpatient (IN) | payer OTHER ==
--- NOTE | ~2017-03-02 | DS ---
Unit #: [id number] #: [id number] Patient: KANG KAPOOR [id number] [address] [place], [place] [address] [id number] I MR#: [id number] NAME: KANG KAPOOR ROOM: 569 Age: 61 Sex: M Admission Date: 03/03/2017 : 1955 Discharge Date: 03/06/2017 Attending Physician: Roldan Johnson M.D. Primary Care Physician: Rosa Elena Melgoza DISCHARGE SUMMARY PRINCIPAL DIAGNOSES 1. Left elbow abscess with associated cellulitis with methicillin resistant Staph aureus. 2. Hypotension, medication-induced, now resolved. 3. Acute kidney injury with chronic kidney disease stage 3: Discharge creatinine is 1.3. 4. Chronic systolic congestive heart failure with ejection fraction of 10% to 15%. 5. History of pulmonary embolism, maintained on Xarelto therapy. 6. Chronic obstructive pulmonary disease. 7. Chronic abdominal pain, maintained on opiates. 8. Non-anion gap metabolic acidosis. 9. Gastroesophageal reflux disease. 10. Severe mitral regurgitation. 11. Severe tricuspid regurgitation. RESEARCH STUDY ASSISTANT Dr. Hector - Orthopedic Surgery. PROCEDURES 1. I and D of left elbow abscess which occurred without complication. 2. Left upper extremity venous Doppler which was negative for DVT. CLINICAL HISTORY/HOSPITAL COURSE Mr. Kapoor is a 61-year-old male who presents to the emergency department with swelling and redness of her left elbow. Please refer to H and P for further details. The patient clinically has signs of cellulitis but remained afebrile and only had a minimally elevated white blood cell count. She was initially placed in observation for evaluation. The patient was started on empiric vancomycin. He subsequently hit his elbow and it began draining large amounts of pus indicating underlying abscess. For this reason, Dr. Hector was consulted. The patient underwent I and D of the elbow on March 05. Cultures were revealing MRSA which is relatively resistant. The patient, however, is clinically doing much better. His very minimal leukocytosis has resolved and he has remained afebrile. Plan is for Zyvox therapy upon discharge. He is high risk for Bactrim therapy given his chronic kidney disease. During hospitalization, the patient was maintained on his current diuretics and heart medications for CHF. Unfortunately, he developed significant hypotension with systolic in the 70s so I will admit this was relatively asymptomatic. He was given two fluid boluses and maintained on low dose IV fluids and hypotension resolved. I am going to decrease his Unit #: [id number] #: [id number] Patient: KANG KAPOOR dose of diuretics and continue him on some of his heart pills upon discharge. He can have close followup with cardiology. The patient's other chronic issues remain stable. He will be discharged home today. DISCHARGE CONDITION Stable. DISCHARGE STATUS Discharge to home. DISCHARGE MEDICATIONS 1. Zyvox 600 mg p.o. b.i.d. for one week. 2. Albuterol sulfate nebulizer solution, 3 mL every four hours p.r.n. for shortness of breath. 3. Xarelto 15 mg daily. 4. Coreg 3.125 mg p.o. b.i.d. 5. Bumex 2 mg daily. 6. Zantac 150 mg daily. 7. Lortab 7.5/325, one tablet b.i.d. p.r.n. for pain. 8. Omeprazole 40 mg daily. 9. Potassium chloride 20 mEq daily. 10. Of note, I am holding lisinopril 2.5 mg, again decrease the dose of Bumex to once daily from twice daily and holding the Aldactone as well. DISCHARGE INSTRUCTIONS The patient was instructed to follow a heart healthy, low salt 1800 mL fluid restricted diet. He should have daily wet to dry dressings of the left elbow incision. FOLLOWUP The patient will follow up with Jac CamachoRRamakrishna next week for further evaluation of the wound. The patient will follow up with his digital coordinator, Dr. Guaman, as previously scheduled. Time spent on discharge - 28 minutes. Dictated by... Maggy Dubon M.D. REPLACED BY [facility] AN[facility]/chris TD: 03/07/2017 08:33 JOB #: [id number] Unit #: [id number] #: [id number] Patient: KANG KAPOOR DISCHARGE SUMMARY Page 1 of 1 X Maggy Dubon MD X DISCHARGE SUMMARY
--- NOTE | ~2017-03-02 | US140 ---
[facility] A Service of [facility] & [facility] RADIOLOGY TEXT RESULTS PATIENT: KANG KAPOOR LOCATION: C2A 219- : [birth year] UNIT #: [id number] AGE: [address]: Roldan Johnson MD SEX: M ORDER DR: [id number] [facility] [address] [place], [place] [address] [id number] I MR#: [id number] Acc #: [id number] NAME: KANG KAPOOR : 1955 SEX: M STUDY DATE/TIME: 03/04/2017 8:31 UNIT: C2A ROOM: [facility] STUDY DESCRIPTION: US UE Veins Unilat or Ltd Stdy Attending Physician: Roldan Johnson M.D. Ordering Physician: Maggy Dubon M.D. Primary Care Physician: Rosa Elena Melgoza MEDICAL IMAGING REPORT This report is preliminary unless electronic signature is present EXAM Left upper extremity venous Doppler on 03/04 INDICATIONS Left upper extremity swelling over the last 5 days. Patient recently treated for wound on the elbow. The patient is currently on blood thinners for a pulmonary embolism. FINDINGS Lowe-scale, color-flow, spectral Doppler waveform analysis is performed of the left upper extremity venous system. All venous structures demonstrate normal color-flow and compressibility where applicable. No superficial or deep venous diagnosis is seen. IMPRESSION Negative left upper extremity venous Doppler. Dictated by... Matthias Carrizales Jr., M.D. THIS IS AN ELECTRONICALLY VERIFIED REPORT Matthias Carrizales Jr., M.D. at 03/04/2017 12:40 PM CARMINA/barrie TD: 03/04/2017 10:42 JOB #: [id number] MEDICAL IMAGING REPORT Page 1 of 1 COPY
--- NOTE | ~2017-03-02 | OR ---
Unit #: [id number] #: [id number] Patient: KANG KAPOOR [id number] [address] [address] [id number] I MR#: [id number] NAME: KANG KAPOOR ROOM: [facility] Date of Procedure: 03/05/2017 Admission Date: 03/03/2017 Surgeon: Edmundo Hector M.D. : 1955 Attending Physician: Roldan Johnson M.D. Primary Care Physician: Rosa Elena Melgoza OPERATIVE REPORT PREOPERATIVE DIAGNOSIS Left elbow lateral subcutaneous abscess. POSTOPERATIVE DIAGNOSIS Left elbow lateral subcutaneous abscess. PROCEDURE PERFORMED Incision and drainage of left elbow abscess with debridement to muscle fascia. FOLDER INSPECTOR Rosie Chowdary. ANESTHESIA Local with MAC. ESTIMATED BLOOD LOSS 15 mL. INDICATIONS FOR PROCEDURE Mr. Kapoor is a 61-year-old gentleman with a developing abscess in the left lateral aspect of the forearm and elbow. This has been draining purulent fluid. Operative intervention with drainage and debridement is indicated. DESCRIPTION OF PROCEDURE The patient was identified in the preoperative holding area. The operative site was marked. The patient was brought to the operating room and placed supine on the operating table. The patient had ejection fraction of only 10% to 15%. Therefore, we elected for MAC anesthesia with local. The left arm was prepped and draped in sterile fashion. The affected area was infiltrated with a local anesthetic. A 10-blade knife was used to open the area of spontaneous drainage. The abscess cavity was entered. Purulent fluid was evacuated. The area was then debrided utilizing curettes and rongeurs down to the level of the muscle fascia removing necrotic and nonviable skin and tissue. The wound was left open and packed with a small amount of Betadine-soaked gauze. This was then covered with 4x4s and sterile dressings. The patient was then aroused from sedation. DISPOSITION Stable to the recovery room. Unit #: [id number] #: [id number] Patient: KANG KAPOOR Dictated by... Mariam Conway/rachel TD: 03/06/2017 16:35 JOB #: [id number] OPERATIVE REPORT Page 1 of 1 X Edmundo Hector MD PROCEDURE OPERATIVE NOTE
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
--- NOTE | ~2017-03-02 | CR90 ---
[facility]. [facility] A Service of [facility] & [facility] RADIOLOGY TEXT RESULTS PATIENT: KANG KAPOOR LOCATION: [facility] 569-01 : [birth year] UNIT #: [id number] AGE: [address]: Roldan Johnson MD SEX: M ORDER DR: [id number] [facility] [address] [facility]. [place], [place] [address] [id number] I MR#: [id number] Acc #: [id number] NAME: KANG KAPOOR : 1955 SEX: M STUDY DATE/TIME: 03/04/2017 14:41 UNIT: [facility] ROOM: [facility] STUDY DESCRIPTION: CR Elbow 2 View Lt Attending Physician: Roldan Johnson M.D. Ordering Physician: Maggy Dubon M.D. Primary Care Physician: Rosa Elena Melgoza Aprn MEDICAL IMAGING REPORT This report is preliminary unless electronic signature is present EXAM Left elbow 2 views 03/04/2017 14:41 p.m. HISTORY History sheet states pain, swelling, abscess for 2 days. Abscess "busted" last night. COMPARISON Venous Doppler 03/04/2017. Left upper extremity. FINDINGS Edema/swelling of the posterior aspect of the distal upper arm and elbow region. There is potential skin irregularity in the olecranon bursal region; correlate for wound or skin lesion. Soft tissue prominence posterior to the olecranon in the distal humerus is present. Possibility of a fluid collection or mass is considered. There is no acute bony abnormality or joint effusion. Small chronic calcification of the radiocapitellar joint line region is of doubtful current significance. There are no radiopaque foreign bodies identified. IMPRESSION 1. Posterior distal upper arm and elbow region swelling/soft tissue edema. Skin irregularity in the olecranon region. Correlate for any wound. There is also soft tissue density prominence posterior to the olecranon in the distal humerus. An abscess is possible. 2. No joint or bone acute abnormalities. 3. No radiopaque foreign body. Dictated by... Effie Giron M.D. [facility] A Service of [facility] & [facility] RADIOLOGY TEXT RESULTS PATIENT: KANG KAPOOR LOCATION: [facility] 569-01 : [birth year] UNIT #: [id number] AGE: [address]: Roldan Johnson MD SEX: M ORDER DR: THIS IS AN ELECTRONICALLY VERIFIED REPORT Effie Giron M.D. at 03/09/2017 10:20 AM Karen TD: 03/04/2017 16:38 JOB #: [id number] MEDICAL IMAGING REPORT Page 1 of 1 COPY
[2017-03-02] MEDS ORDERED: VIBRAMYCIN100 M1 PO (21:57)
[2017-03-02 22:33] LABS: BASOPHIL# 0.1 X10e3 (0-0.3); BASOPHIL% 0.9 % (0-2.5); EOSINOPHIL% 0.1 % (0.0-7.0); HEMATOCRIT 35.1 % (38.0-50.0); HEMOGLOBIN 11.9 gm/dL (13.0-16.0); LYMPHOCYTE# 1.2 X10e3 (1.0-3.5); LYMPHOCYTE% 10.7 % (17.0-45.0); MEAN CELL VOLUME 95.8 FL (83-96); MEAN CORPUSCULAR HEMOGLOBIN 32.4 PG (28-34); MEAN CORPUSCULAR HGB CONC 33.8 g/dL (30-36); MEAN PLATELET VOLUME 7.8 FL (6.5-11.5); MONOCYTE# 0.9 X10e3 (0-1.0); MONOCYTE% 8.1 % (3.0-12.0); NEUTROPHIL# 8.7 X10e3 (1.5-7.1); NEUTROPHIL% 80.2 % (40-75); PLATELET COUNT 258 X10e3 (140-420); RED BLOOD COUNT 3.66 X10e (3.90-5.60); RED CELL DISTRIBUTION WIDTH 14.7 % (11.0-15.5); WHITE BLOOD COUNT 10.9 X10e3 (4.0-10.5)
[2017-03-02 22:40] LABS: DIFF IND NO
[2017-03-02 22:46] LABS: INR 1.8; PROTHROMBIN TIME (PATIENT) 20.8 SECONDS (9.5-12.4)
[2017-03-02 22:51] LABS: CALCIUM SERUM 8.8 mg/dL (8.4-10.2); CREATININE SERUM 1.5 mg/dL (0.6-1.4); GLOM FILT RATE Estimated 48.9 mL/min (>60); POTASSIUM 3.9 mmol/L (3.5-5.1)
[2017-03-02 22:53] LABS: PARTIAL THROMBOPLASTIN TIME 29.1 SECONDS (25.6-38.1)
[2017-03-03 15:41] LABS: AMPHETAMINE NEG (NEG); BARBITURATES NEG (NEG); BENZODIAZEPINES NEG (NEG); COCAINE NEG (NEG); MARIJUANA NEG (NEG); OPIATES POS (NEG); TRICYCLIC ANTIDEPRESSANTS NEG (NEG); U METHADONE NEG (NEG)
[2017-03-04 05:58] LABS: HEMATOCRIT 32.6 % (38.0-50.0); HEMOGLOBIN 10.5 gm/dL (13.0-16.0); MEAN CORPUSCULAR HGB CONC 32.3 g/dL (30-36); MEAN PLATELET VOLUME 8.2 FL (6.5-11.5); RED BLOOD COUNT 3.29 X10e (3.90-5.60); RED CELL DISTRIBUTION WIDTH 14.9 % (11.0-15.5); WHITE BLOOD COUNT 8.1 X10e3 (4.0-10.5)
[2017-03-04 06:01] LABS: MEAN CELL VOLUME 98.9 FL (83-96)
[2017-03-04 06:27] LABS: CALCIUM SERUM 8.4 mg/dL (8.4-10.2); GLOM FILT RATE Estimated 34.5 mL/min (>60); POTASSIUM 3.9 mmol/L (3.5-5.1)
[2017-03-05 06:32] LABS: CALCIUM SERUM 8.4 mg/dL (8.4-10.2); CREATININE SERUM 1.6 mg/dL (0.6-1.4); GLOM FILT RATE Estimated 45.2 mL/min (>60); POTASSIUM 4.8 mmol/L (3.5-5.1)
[2017-03-06 06:37] LABS: HEMATOCRIT 33.5 % (38.0-50.0); MEAN CELL VOLUME 97.5 FL (83-96); MEAN CORPUSCULAR HEMOGLOBIN 31.9 PG (28-34); MEAN CORPUSCULAR HGB CONC 32.7 g/dL (30-36); MEAN PLATELET VOLUME 8.2 FL (6.5-11.5); RED BLOOD COUNT 3.43 X10e (3.90-5.60); WHITE BLOOD COUNT 4.9 X10e3 (4.0-10.5)
[2017-03-06 07:45] LABS: BUN/CREATININE RATIO 37.69; CALCIUM SERUM 8.9 mg/dL (8.4-10.2); CREATININE SERUM 1.3 mg/dL (0.6-1.4); GLOM FILT RATE Estimated 58.1 mL/min (>60); POTASSIUM 4.8 mmol/L (3.5-5.1)
[2017-03-06] MEDS ORDERED: ZYVOX600 MG PO (14:45)
== END 2017-03-06 16:43 | disposition home or self-care (01) | DRG 580 ==
LOC: SED 21:46 → SEDOF 23:41 → C2A 23:41 → SED 23:41 → SEDOF 03-03 07:17 → C2A 03-03 09:04 → SEDOF 03-03 09:04 → SED 03-03 11:00 → SEDOF 03-03 11:00 → C2A 03-03 11:00 → C5C 03-03 11:00 → C2A 03-04 17:59 → C5C 03-06 16:43
PROVIDERS: Emergency Medicine; Internal Medicine; Orthopaedic Surgery
PROC: 0KBB0ZZ Excision of Left Lower Arm and Wrist Muscle, Open Approach (ICD-10-PCS; 2017-03-05)
PROC: 0R9M0ZZ Drainage of Left Elbow Joint, Open Approach (ICD-10-PCS; principal; 2017-03-05 12:00)
DX: L03.114 Cellulitis of left upper limb (principal); E87.2 Acidosis; I95.89 Other hypotension; N17.9 Acute kidney failure, unspecified; I13.0 Hypertensive heart and chronic kidney disease with heart failure and stage 1 through stage 4 chronic kidney disease, or unspecified chronic kidney disease; N18.3 Chronic kidney disease, stage 3 (moderate); I08.1 Rheumatic disorders of both mitral and tricuspid valves; I50.22 Chronic systolic (congestive) heart failure; L02.414 Cutaneous abscess of left upper limb; B95.62 Methicillin resistant Staphylococcus aureus infection as the cause of diseases classified elsewhere; Z86.711 Personal history of pulmonary embolism; J44.9 Chronic obstructive pulmonary disease, unspecified; R10.9 Unspecified abdominal pain; K21.9 Gastro-esophageal reflux disease without esophagitis; G89.4 Chronic pain syndrome; Z59.0 Homelessness; Z95.810 Presence of automatic (implantable) cardiac defibrillator; Z79.01 Long term (current) use of anticoagulants
CPT/HCPCS: 36415; 73070; 80048; 80202; 80307; 83605; 85025; 85027; 85610; 85730; 87040; 87070; 87075; 87077; 87186; 87205; 93971; 94640; 94760; 96365; 96375; 99285; J1170; J2250; J2270; J2405; J2543; J3010; J3370

== ENCOUNTER 2017-03-16 18:45 | Inpatient (IN) | payer OTHER ==
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
--- NOTE | ~2017-03-16 | CR72 ---
[facility] A Service of [facility] & [facility] RADIOLOGY TEXT RESULTS PATIENT: KANG KAPOOR LOCATION: [place] [address] : [birth year] UNIT #: [id number] AGE: [address]: Roldan Johnson MD SEX: M ORDER DR: [id number] [facility] [address] [facility]. [place], [place] [address] [id number] I MR#: [id number] Acc #: [id number] NAME: KANG KAPOOR : 1955 SEX: M STUDY DATE/TIME: 03/16/2017 19:53 UNIT: CEDOF ROOM: 32390 STUDY DESCRIPTION: CR Chest Single View Portable Attending Physician: Roldan Johnson M.D. Ordering Physician: Magdiel Geller D.O. Primary Care Physician: Rosa Elena Melgoza R.N. MEDICAL IMAGING REPORT This report is preliminary unless electronic signature is present EXAM Portable chest. HISTORY Chest pain and congestion and bilateral leg swelling for 1 week. FINDINGS Moderate cardiac enlargement is stable compared to 01/19/17. Mild patchy atelectasis or infiltrate in the right base persists, but there has been interval resolution of nearly the entire small right pleural effusion with only trace right pleural effusion remaining. Remainder of the chest is stable. Dictated by... Mitchell Padilla M.D. THIS IS AN ELECTRONICALLY VERIFIED REPORT Mitchell Padilla M.D. at 03/17/2017 1:10 PM FAWN/marlys TD: 03/16/2017 23:44 JOB #: [id number] MEDICAL IMAGING REPORT Page 1 of 1 COPY
--- NOTE | ~2017-03-16 | DS ---
Unit #: [id number] #: [id number] Patient: KANG KAPOOR [id number] [address] [address] [id number] I MR#: [id number] NAME: KANG KAPOOR ROOM: [facility] Age: 61 Sex: M Admission Date: 03/16/2017 : 1955 Discharge Date: 03/17/2017 Attending Physician: Roldan Johnson M.D. Primary Care Physician: Rosa Elena Melgoza Aprn DISCHARGE SUMMARY DISCHARGE DIAGNOSES 1. Acute on chronic systolic heart failure. 2. Chronic kidney disease stage 3. HOSPITAL COURSE The patient is a 61-year-old male who presented to [facility] emergency department with complaint of shortness of breath. In the emergency department he was noted to be dyspneic, but not hypoxic. He was noted to have worsening edema and a BNP of 1,983. The patient was admitted and started on IV Bumex. He has diuresed a negative 1.5 liters. The patient states that his visible swelling, which urged his presentation, has now resolved. I suspect that with the patient being homeless he has problems with compliance and has thusly improved rapidly with reinitiation of medications. The patient is up ambulatory and requesting discharge, which seems reasonable at this time. DISCHARGE MEDICATIONS 1. Coreg 3.125 mg p.o. b.i.d. 2. Albuterol sulfate per nebulizer q.i.d. 3. Xarelto 50 mg p.o. daily. 4. Zestril 2.5 mg p.o. daily. 5. Bumex 2 mg p.o. b.i.d. 6. Spironolactone 25 mg p.o. daily. 7. K-Dur 20 mEq p.o. daily. 8. Omeprazole 40 mg daily. 9. Zantac 150 mg daily. 10. Hydrocodone/acetaminophen 7.5/325 one p.o. b.i.d. FOLLOWUP The patient should follow up with Dr. Farmer at his regularly scheduled appointment. Dictated by... Roldan Johnson M.D. KAREN/inez Unit #: [id number] #: [id number] Patient: KANG KAPOOR TD: 03/19/2017 08:39 JOB #: [id number] DISCHARGE SUMMARY Page 1 of 1 X Roldan Johnson MD X DISCHARGE SUMMARY
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
--- NOTE | ~2017-03-16 | EKG ---
PATIENT: KANG KAPOOR UNIT #: [id number] Ventricular Rate: 94 BPM Atrial Rate: 94 BPM P-R Interval: 154 ms QRS Duration: 102 ms Q-T Interval: 398 ms QTC Calculation(Bezet): 497 ms P Rogers: 67 degrees Calculated R Rogers: -45 degrees Calculated T Rogers: 128 degrees Diagnosis Line: Normal sinus rhythm Diagnosis Line: Left atrial enlargement Diagnosis Line: Left anterior fascicular block Diagnosis Line: ST and T wave abnormality, consider lateral ischemia Diagnosis Line: Prolonged QT Diagnosis Line: Abnormal ECG Diagnosis Line: When compared with ECG of 21-JAN-2017 05:48, Diagnosis Line: Left anterior fascicular block is now Present Diagnosis Line: ST no longer depressed in Anterior leads Diagnosis Line: Nonspecific T wave abnormality no longer evident Diagnosis Line: in Inferior leads Diagnosis Line: Confirmed by IGNACIO GOULD MD ([id number]) on Diagnosis Line: 03/17/2017 11:09:28 AM INTERPRETING MD: ZACH
[~2017-03-16 18:45] MED LIST changes: +ZYVOX600 MG PO
[2017-03-16 19:32] LABS: BASOPHIL# 0.1 X10e3 (0-0.3); BASOPHIL% 1.4 % (0-2.5); EOSINOPHIL# 0.2 X10e3 (0-0.7); EOSINOPHIL% 2.8 % (0.0-7.0); HEMATOCRIT 35.4 % (38.0-50.0); HEMOGLOBIN 11.5 gm/dL (13.0-16.0); LYMPHOCYTE# 0.9 X10e3 (1.0-3.5); LYMPHOCYTE% 15.3 % (17.0-45.0); MEAN CELL VOLUME 98.2 FL (83-96); MEAN CORPUSCULAR HEMOGLOBIN 31.9 PG (28-34); MEAN CORPUSCULAR HGB CONC 32.5 g/dL (30-36); MEAN PLATELET VOLUME 7.5 FL (6.5-11.5); MONOCYTE# 0.2 X10e3 (0-1.0); MONOCYTE% 3.9 % (3.0-12.0); NEUTROPHIL# 4.7 X10e3 (1.5-7.1); NEUTROPHIL% 76.6 % (40-75); PLATELET COUNT 158 X10e3 (140-420); RED CELL DISTRIBUTION WIDTH 15.9 % (11.0-15.5); WHITE BLOOD COUNT 6.1 X10e3 (4.0-10.5)
[2017-03-16 19:36] LABS: DIFF IND NO
[2017-03-16 19:55] LABS: INR 1.5; PARTIAL THROMBOPLASTIN TIME 31.1 SECONDS (23.5-31.3); PROTHROMBIN TIME (PATIENT) 15.9 SECONDS (10.0-11.7)
[2017-03-16 19:57] LABS: ALBUMIN SERUM 3.5 g/dL (3.5-5.0); BILIRUBIN, DIRECT 0.3 mg/dL (0.0-0.2); BILIRUBIN,INDIRECT 1.2 mg/dL (0.0-0.9); BILIRUBIN,TOTAL 1.5 mg/dL (0.2-2.0); BUN/CREATININE RATIO 20.76; CALCIUM SERUM 8.4 mg/dL (8.4-10.2); CREATININE SERUM 1.3 mg/dL (0.6-1.4); GLOM FILT RATE Estimated 58.1 mL/min (>60); POTASSIUM 4.5 mmol/L (3.5-5.1); PROTEIN TOTAL SERUM 7.3 g/dL (6.0-8.3)
[2017-03-16 20:05] LABS: POC - CKMB 1.9 ng/mL (0.0-7.9); POC - TROPONIN <0.05 ng/mL (<=0.05)
[2017-03-16] MEDS ORDERED: K-DUR20 ME1 PO (20:24)
[2017-03-16] MEDS ORDERED: OMEPRAZOLE40 M1 PO (20:24)
[2017-03-16] MEDS ORDERED: ZANTAC150 MG PO (20:24)
[2017-03-16] MEDS ORDERED: BUMEX2 MG PO (20:25)
[2017-03-16] MEDS ORDERED: ZESTRIL2.5 MG PO (20:25)
[2017-03-16] MEDS ORDERED: ALDACTONE25 MG PO (20:25)
[2017-03-16] MEDS ORDERED: XARELTO15 MG PO (20:25)
[2017-03-16] MEDS ORDERED: COREG3.125 MG PO (20:26)
[2017-03-16] MEDS ORDERED: LORTAB 7.5-3251 EACH PO (20:26)
[2017-03-16] MEDS ORDERED: ALBUTEROL MININEB NEB (20:26)
[2017-03-17 03:53] LABS: ALBUMIN SERUM 3.4 g/dL (3.5-5.0); BUN/CREATININE RATIO 23.63; CALCIUM SERUM 8.6 mg/dL (8.4-10.2); CREATININE SERUM 1.1 mg/dL (0.6-1.4); GLOM FILT RATE Estimated 71.1 mL/min (>60); MAGNESIUM 1.7 mg/dL (1.6-3.0); POTASSIUM 3.9 mmol/L (3.5-5.1); PROTEIN TOTAL SERUM 6.9 g/dL (6.0-8.3)
== END 2017-03-17 16:11 | disposition home or self-care (01) | DRG 291 ==
LOC: CED 18:45 → CEDOF 20:45 → CED 20:50 → CEDOF 20:50 → C4C 23:55
PROVIDERS: Emergency Medicine; Internal Medicine
PROC: B24BYZZ Ultrasonography of Heart with Aorta using Other Contrast (ICD-10-PCS; principal; 2017-03-17)
DX: I13.0 Hypertensive heart and chronic kidney disease with heart failure and stage 1 through stage 4 chronic kidney disease, or unspecified chronic kidney disease (principal); I50.43 Acute on chronic combined systolic (congestive) and diastolic (congestive) heart failure; N18.3 Chronic kidney disease, stage 3 (moderate); I08.1 Rheumatic disorders of both mitral and tricuspid valves; I42.9 Cardiomyopathy, unspecified; K22.2 Esophageal obstruction; J44.9 Chronic obstructive pulmonary disease, unspecified; K21.9 Gastro-esophageal reflux disease without esophagitis; G89.4 Chronic pain syndrome; Z59.0 Homelessness; Z86.711 Personal history of pulmonary embolism; Z79.01 Long term (current) use of anticoagulants; Z79.891 Long term (current) use of opiate analgesic; Z86.14 Personal history of Methicillin resistant Staphylococcus aureus infection; R10.9 Unspecified abdominal pain; Z95.810 Presence of automatic (implantable) cardiac defibrillator
CPT/HCPCS: 36415; 71010; 80048; 80053; 80076; 82553; 83735; 83880; 84484; 85025; 85610; 85730; 93005; 93306; 94640; 94760; 99285

== ENCOUNTER 2017-04-20 20:47 | Inpatient (IN) | payer OTHER ==
[~2017-04-20] VITALS: Ht 162.6 cm; Wt 67.6 kg
--- NOTE | ~2017-04-20 | CR72 ---
[facility] A Service of [facility] RADIOLOGY TEXT RESULTS PATIENT: KANG KAPOOR LOCATION: [place] [address]- : [birth year] UNIT #: [id number] AGE: [address]: NOLBERTO PENA MD SEX: M ORDER DR: [id number] [facility] [address] [place], [place] [address] [id number] I MR#: [id number] #: [id number] NAME: KANG KAPOOR : 1955 SEX: M STUDY DATE/TIME: 04/20/2017 21:58 UNIT: CEDOF ROOM: [id number] STUDY DESCRIPTION: CR Chest Single View Portable Attending Physician: Nolberto Pena M.D. Ordering Physician: Magdiel Geller D.O. Primary Care Physician: Primary Care Physician No MEDICAL IMAGING REPORT This report is preliminary unless electronic signature is present EXAM Single view of the chest, 04/20/2017 COMPARISON Single view of the chest, 03/16/2017 HISTORY Lower leg edema, shortness of air and cough for two days. CHF. FINDINGS Single view of the chest was obtained. Redemonstrated is the cardiomegaly and pacemaker. Mild prominence of interstitial markings are redemonstrated in the lungs bilaterally with suspicious mild superimposed alveolar disease in the right lung base. Minimal right-sided pleural fluid/effusion is probably present given opacification of the right lateral CP angle. Minimal atelectatic changes are probably present in the left lateral lower lung zone. These changes do not appear to have significantly worsened when compared to the prior study from last month favoring a more chronic process. Right upper lobe lung nodule is stable and probably calcified suggestive of old granulomatous disease. IMPRESSION There is no significant interval worsening when compared to the recent chest x-ray from 03/16/[address] chest from 01/24/2017. Redemonstrated are the interstitial prominence and patchy alveolar round density in the right lung base which was also noted on the prior CT from 01/24/2017. Stable cardiomegaly and pacemaker. Minimal right pleural effusion. Dictated by... Alexa Salas M.D. [facility] A Service of [facility] RADIOLOGY TEXT RESULTS PATIENT: KANG KAPOOR LOCATION: [facility] 337-01 : [birth year] UNIT #: [id number] AGE: [address]: NOLBERTO PENA MD SEX: M ORDER DR: THIS IS AN ELECTRONICALLY VERIFIED REPORT Alexa Salas M.D. at 04/22/2017 7:32 PM CPR/bridget TD: 04/21/2017 11:37 JOB #: [id number] MEDICAL IMAGING REPORT Page 1 of 1 COPY
--- NOTE | ~2017-04-20 | CO ---
Unit #: [id number] #: [id number] Patient: KANG KAPOOR [id number] [facility] [address] [facility]. [place], [place] [address] [id number] I MR#: [id number] NAME: KANG KAPOOR ROOM: 337 Age: 61 Sex: M Admission Date: 04/20/2017 : 1955 Attending Physician: Juli Howe M.D. CONSULTATION REPORT This is actually an [facility] [place] [place] patient. REASON FOR CONSULTATION Congestive heart failure. HISTORY OF PRESENT ILLNESS This is a very pleasant, 61-year-old male, who is normally followed with Dr. Guaman. He has a past medical history of systolic and diastolic congestive heart failure, status post biventricular ICD in 10/[address] Aparicio at [facility], hypertension, chronic kidney disease, COPD, history of pulmonary embolus, on chronic anticoagulation with Xarelto. The patient lives in his van. In regard to his diet, he reports he has been eating mostly burritos from the gas stations daily, therefore obviously is not following low-sodium diet. He reports he has been in and out of the hospital multiple times over the last year. The patient recently underwent cardiac catheterization in 2016 at [facility], which showed nonobstructive coronary artery disease, LVEF of 15%. Last echocardiogram performed here in 02/2017 showed an LVEF of less than 10%, severe mitral regurgitation and tricuspid regurgitation, moderate TR and RVSP of 57 mmHg. AICD lead was noted. The patient states he is very familiar with these symptoms. He reports over the last 3 days, increasing difficulty with sleeping and inability to lie flat as well as abdominal pain and lower extremity swelling. The patient does report when these episodes occur, he does also have complaints of chest tightness. This chest tightness does not radiate. Initial point of care troponins have been negative here. Cardiac EKG shows normal sinus rhythm, rate of 91 beats per minute, possible left atrial enlargement, left axis deviation is present. Cannot rule out previous anterior infarct, ST-T wave abnormalities noted with some T-wave inversion in lead V6, QTc interval 516 msec. On arrival to the emergency room, the patient was noted to have a BNP of 2120. His chest x-ray shows no significant interval worsening from compared to the recent from 03/16 re-demonstrated the interstitial prominence and patchy alveolar round density in the right lung base, stable cardiomegaly and a pacemaker. He did receive 1 mg of Bumex IV in the ER and he is diuresing well. At present, he has been seen and examined in the ER T7. He denies any complaints of chest pain. He is lying flat and appears to be in no acute distress. We were asked to see for evaluation of the above. PAST MEDICAL HISTORY Unit #: [id number] #: [id number] Patient: KANG KAPOOR 1. Hypertension. 2. Nonischemic cardiomyopathy. Cardiac catheterization in 2015 showed nonobstructive coronary artery disease, left ventricular ejection fraction of 15% that was 02/2016. 3. Status post biventricular AICD device Medtronic in 10/2016. 4. 2D echocardiogram, 03/17/2017, showed an LVEF of less than 10%, severe mitral regurgitation and tricuspid regurgitation, moderate PV, RVSP of 57 mmHg. AICD lead was noted. 5. History of PE on chronic anticoagulation with Xarelto. 6. Chronic kidney disease, stage 3. 7. COPD. 8. History of MRSA of the left elbow. 9. Homelessness. PAST SURGICAL HISTORY 1. AICD placement, Medtronic device, 10/2016, per Dr. Aparicio. 2. Cardiac cath. 3. Right hand surgery. 4. Leg surgery. SOCIAL HISTORY The patient is homeless. He lives in his van. Has a history of substance abuse in the past, but has been clean for many years. He was discharged recently from pain management secondary to his multiple hospital admissions and inconsistent with his drug screens. He is a nonsmoker. Denies illicit drug use. FAMILY HISTORY No family history of coronary artery disease. REVIEW OF SYSTEMS Positive for abdominal pain, lower extremity swelling, dyspnea on exertion, orthopnea. Otherwise, negative except for what is stated above in the HPI. ALLERGIES No known drug allergies. HOME MEDICATIONS K-Dur 20 mEq p.o. daily, omeprazole 40 mg p.o. daily, Zantac 150 mg p.o. daily, Xarelto 15 mg p.o. daily, Zestril 2.5 mg p.o. daily, Bumex 2 mg p.o. b.i.d., Aldactone 25 mg p.o. daily, carvedilol 3.125 mg p.o. daily, Lortab 7.5/325 one tab p.o. b.i.d. p.r.n., albuterol sulfate inhalation as needed, linezolid 600 mg p.o. daily, Stiolto/tiotropium inhalation daily. PHYSICAL EXAMINATION VITAL SIGNS: Temperature 97.6, respiratory rate 18 to 22, pulse is 84, blood pressure 100/81. GENERAL: This is a pleasant 61-year-old male, in no acute distress. HEENT: Head is atraumatic and normocephalic. Pupils are equal and round. NECK: Trachea is midline. Positive for JVD. No lymphadenopathy or thyromegaly. Carotid upstrokes are normal. LUNGS: Clear to auscultation. Diminished in the bases. CARDIOVASCULAR: S1, S2. Regular rate and rhythm. No obvious murmur, gallop, or rub. ABDOMEN: Soft and nontender. Positive for hepatomegaly. Bowel sounds are present. Unit #: [id number] #: [id number] Patient: WHITE,KANG EXTREMITIES: Pulses are weak, but palpable. No pedal edema, clubbing or cyanosis. NEUROLOGIC: He is awake, alert, and oriented. He follows commands. He moves all extremities equally. DIAGNOSTIC STUDIES LABORATORY RESULTS: Glucose 91, BUN 12, creatinine 0.9. Sodium 139, potassium 3.7, chloride 104, CO2 of 28, albumin 3.2, bilirubin total 2.7, bilirubin direct 0.5, bilirubin indirect 2.6. AST is 22, ALT is 16, and ALP is 158. BNP was 2120. Total cholesterol 94, triglycerides 57, LDL 51, HDL 32, TSH 2.68. PT 14.1, INR 1.3, PTT 27.1. Hemoglobin 10.9, hematocrit 33.6, WBCs 3.8, platelet count 167. Troponins have been negative x2. IMAGING STUDIES: Chest x-ray shows no significant interval worsening from compared to the recent x-ray on 03/16/2017. The CT chest of 01/24/2017 re-demonstrated interstitial prominence and patchy alveolar round density in the right lung base, which was also noted on the prior CT from 01/24, stable cardiomegaly, pacemaker, AICD, and minimal right pleural effusion. CARDIOVASCULAR STUDIES: EKG; normal sinus rhythm, rate of 91 beats per minute, possible left atrial enlargement, left axis deviation, ST-T wave abnormality with T-wave inversion in lead V6. No acute ischemic change. QTc interval of 516 msec. IMPRESSION 1. Acute on chronic systolic congestive heart failure. 2. Status post Medtronic implantable cardioverter-defibrillator in 2017. 3. History of pulmonary embolism, on chronic anticoagulation with Xarelto. 4. Chronic kidney disease, creatinine currently stable at 0.9. 5. Chronic obstructive pulmonary disease. 6. Hypertension. 7. Valvular heart disease. Severe mitral regurgitation and tricuspid regurgitation per 2D echo on 03/17/2017. 8. Nonischemic cardiomyopathy. 9. Cardiac cath in 2016 showed nonobstructive coronary artery disease, left ventricular ejection fraction of 15%. PLAN 1. The patient has been admitted for acute on chronic systolic heart failure. He will be placed on healthy heart, low-sodium diet as well as fluid restriction. The patient is to have strict I's and O's and daily weights. We will give him Bumex 1 mg IV q.12 hours. He is already on the appropriate medications. We will continue with his Zestril, beta-obdulia and Aldactone as ordered. Dr. Farmer would also like to give him one dose of Zaroxolyn p.o. We will recheck labs in the a.m. 2. Again, the patient was advised on the importance of low-sodium diet. He states he has been eating a lot of burritos as he is homeless and lives in his van. He has been in and out of the hospital quite often over the last year; however, it is unclear if the patient will be able to follow this recommendations secondary to his limited finances and resources. He does state he has recently applied for disability and that is currently pending. Point of care troponins have been negative. The patient did recently have a cardiac catheterization just in 2015, which showed nonobstructive disease. No reason to repeat that at this time. Any further recommendations will be based per Dr. Farmer's assessment. Unit #: [id number] #: [id number] Patient: KANG KAPOOR Dictated by... Juju Singh A.P.R.N. LMW/modl TD: 04/22/2017 02:19 JOB #: [id number] CONSULTATION REPORT Page 1 of 1 X Juju Singh APRN CONSULTATION REPORT
--- NOTE | ~2017-04-20 | EKG ---
PATIENT: KANG KAPOOR UNIT #: [id number] Ventricular Rate: 91 BPM Atrial Rate: 91 BPM P-R Interval: 156 ms QRS Duration: 114 ms Q-T Interval: 420 ms QTC Calculation(Bezet): 516 ms P Desha: 72 degrees Calculated R Desha: -43 degrees Calculated T Desha: 119 degrees Diagnosis Line: Normal sinus rhythm Diagnosis Line: Possible Left atrial enlargement Diagnosis Line: Left axis deviation Diagnosis Line: Non-specific intra-ventricular conduction delay Diagnosis Line: ST and T wave abnormality, consider lateral ischemia Diagnosis Line: Prolonged QT Diagnosis Line: Abnormal ECG Diagnosis Line: When compared with ECG of 16-MAR-2017 18:58, Diagnosis Line: No significant change was found Diagnosis Line: Confirmed by ARELY RAMOS MD ([id number]) on Diagnosis Line: 04/22/2017 8:14:17 PM INTERPRETING MD: BRIAN
--- NOTE | ~2017-04-20 | DS ---
Unit #: [id number] #: [id number] Patient: KANG KAPOOR [id number] [address] [place], [place] [address] [id number] I MR#: [id number] NAME: KANG KAPOOR ROOM: 337 Age: 61 Sex: M Admission Date: 04/20/2017 : 1955 Discharge Date: 04/25/2017 Attending Physician: Juli Howe M.D. Primary Care Physician: No Primary Care Physician DISCHARGE SUMMARY DISCHARGE DIAGNOSIS 1. Acute on chronic systolic and diastolic congestive heart failure with an ejection fraction of 10%. 2. Status post automatic implantable cardioverter defibrillator (Medtronic). 3. Nonischemic cardiomyopathy cathed in 2015 and showed no obstructive disease for history of PE on chronic anticoagulation with Xarelto. 4. Chronic kidney disease. 5. Chronic obstructive pulmonary disease. 6. Hypertension. 7. Valvular heart disease. Severe MR and TR per echo 02/2017. DISCHARGE MEDICATIONS 1. Albuterol nebulizer as needed for wheezing. 2. Xarelto 10 mg p.o. once daily. 3. Respimat inhaler two puffs daily. 4. Coreg 3.125 mg p.o. twice a day. 5. Bumex 2 mg p.o. twice a day. 6. Lisinopril 2.5 mg p.o. once a day. 7. Zantac 150 mg p.o. once a day. 8. Aldactone 25 mg p.o. once a day. 9. Omeprazole 40 mg p.o. once a day. 10. Potassium chloride 20 mEq p.o. once a day. HOSPITAL COURSE This is a pleasant 61-year-old male who is well known to our group. He has a past medical history of systolic and diastolic congestive heart failure, status post biventricular ICD implantation in 10/[address] Aparicio at [facility], hypertension, chronic kidney disease, COPD, history of PE on chronic anticoagulation with Xarelto. The patient lives in his van. He reports he has been in and out of the hospital multiple times over the last year. He presented to the ER with reports of PND, orthopnea, and lower extremity swelling. He also reports dyspnea on exertion with some chest tightness that does not radiate. Troponins and EKG were negative for ischemia. His BNP was elevated at 2120. Chest x-ray showed no significant worsening compared to his primary x-ray with redemonstrated interstitial prominence and patchy alveolar around this density in the right lung base. He was given a phone number of Bumex IV in the ER and diuresed well. He was admitted for diuresis. He was given a dose of Zaroxolyn, which he stated made him feel nauseous and sick. He continued to diurese. Today he is improved. He denies dyspnea on exertion, PND, orthopnea, or chest pain. His blood pressure is stable at 96/59. He will be discharged home on a Unit #: [id number] #: [id number] Patient: WHITE,KANG 1500 mL fluid restriction and low salt diet. He states he is out of some of his heart medications but he is unsure, which ones. Prescriptions will be provided. He was educated on the importance of fluid restriction and low sodium diet options. He verbalized understanding of this. He will followup with Dr. Guaman in four weeks. We will see him in the office next week to check BMP. He will be discharged home today. PHYSICAL EXAMINATION VITAL SIGNS: Temp 98.2, heart rate 68, respiratory rate 16, blood pressure 96/59. GENERAL: Alert and oriented x3. 61-year-old male walking in room in no acute distress. HEART: S1 and S2. Regular rate and rhythm. No murmurs, rubs or gallops. LUNGS: Clear, decreased in bases. Nonlabored respirations. ABDOMEN: Soft, nontender, nondistended. EXTREMITIES: Pulses are palpable. No pedal edema. DIAGNOSTIC STUDIES LABORATORY RESULTS: Sodium 131, potassium 3.7, chloride 95, BUN 26, creatinine 1.7, glucose 164, mag 2.3. CARDIOVASCULAR STUDIES: Normal sinus rhythm on the monitor. DISCHARGE INSTRUCTIONS 1. Discharge home to followup with Dr. Guaman on 05/22/2017 at 11:30. 2. Have BMP done in Dr. Guaman office on 05/02/2017. 3. Resume home meds per med rec. 4. 1500 mL fluid restriction in, low sodium diet. Dictated by... Jewell Yepez APRN for Philip Guaman M.D. ABHILASH/quinten TD: 04/26/2017 12:37 JOB #: [id number] DISCHARGE SUMMARY Page 1 of 1 X X DISCHARGE SUMMARY
[~2017-04-20 20:47] MED LIST changes: +ALDACTONE25 MG PO; +ZESTRIL2.5 MG PO
[2017-04-20 22:11] LABS: BASOPHIL# 0.1 X10e3 (0-0.3); BASOPHIL% 1.2 % (0-2.5); EOSINOPHIL# 0.2 X10e3 (0-0.7); EOSINOPHIL% 3.4 % (0.0-7.0); HEMATOCRIT 37.9 % (38.0-50.0); HEMOGLOBIN 12.1 gm/dL (13.0-16.0); LYMPHOCYTE# 1.2 X10e3 (1.0-3.5); LYMPHOCYTE% 26.9 % (17.0-45.0); MEAN CELL VOLUME 98.5 FL (83-96); MEAN CORPUSCULAR HEMOGLOBIN 31.3 PG (28-34); MEAN CORPUSCULAR HGB CONC 31.8 g/dL (30-36); MEAN PLATELET VOLUME 8.6 FL (6.5-11.5); MONOCYTE# 0.4 X10e3 (0-1.0); MONOCYTE% 8.6 % (3.0-12.0); NEUTROPHIL# 2.6 X10e3 (1.5-7.1); NEUTROPHIL% 59.9 % (40-75); PLATELET COUNT 185 X10e3 (140-420); RED BLOOD COUNT 3.85 X10e (3.90-5.60); RED CELL DISTRIBUTION WIDTH 17.2 % (11.0-15.5); WHITE BLOOD COUNT 4.4 X10e3 (4.0-10.5)
[2017-04-20 22:16] LABS: DIFF IND NO
[2017-04-20 22:24] LABS: INR 1.3; PARTIAL THROMBOPLASTIN TIME 27.1 SECONDS (23.5-31.3); PROTHROMBIN TIME (PATIENT) 14.1 SECONDS (10.0-11.7)
[2017-04-20 22:25] LABS: POC - TROPONIN <0.05 ng/mL (<=0.05)
[2017-04-20 22:36] LABS: ALBUMIN SERUM 3.9 g/dL (3.5-5.0); BILIRUBIN, DIRECT 0.5 mg/dL (0.0-0.2); BILIRUBIN,INDIRECT 2.6 mg/dL (0.0-0.9); BILIRUBIN,TOTAL 3.1 mg/dL (0.2-2.0); CALCIUM SERUM 8.8 mg/dL (8.4-10.2); GLOM FILT RATE Estimated 79.8 mL/min (>60); POTASSIUM 3.2 mmol/L (3.5-5.1); PROTEIN TOTAL SERUM 7.6 g/dL (6.0-8.3)
[2017-04-20] MEDS ORDERED: LINEZOLID600 MG PO (23:23)
[2017-04-20] MEDS ORDERED: STIOLTO RESPIMAT4 GM INH (23:24)
[2017-04-21 03:31] LABS: POC - CKMB 2.4 ng/mL (0.0-7.9); POC - TROPONIN <0.05 ng/mL (<=0.05)
[2017-04-21 06:06] LABS: EOSINOPHIL# 0.1 X10e3 (0-0.7); EOSINOPHIL% 3.7 % (0.0-7.0); HEMATOCRIT 33.6 % (38.0-50.0); HEMOGLOBIN 10.9 gm/dL (13.0-16.0); LYMPHOCYTE# 1.1 X10e3 (1.0-3.5); LYMPHOCYTE% 30.6 % (17.0-45.0); MEAN CELL VOLUME 97.3 FL (83-96); MEAN CORPUSCULAR HEMOGLOBIN 31.5 PG (28-34); MEAN CORPUSCULAR HGB CONC 32.4 g/dL (30-36); MONOCYTE# 0.4 X10e3 (0-1.0); NEUTROPHIL% 53.7 % (40-75); PLATELET COUNT 167 X10e3 (140-420); RED BLOOD COUNT 3.45 X10e (3.90-5.60); RED CELL DISTRIBUTION WIDTH 16.7 % (11.0-15.5); WHITE BLOOD COUNT 3.8 X10e3 (4.0-10.5)
[2017-04-21 06:09] LABS: DIFF IND NO
[2017-04-21 07:22] LABS: ALBUMIN SERUM 3.2 g/dL (3.5-5.0); BILIRUBIN,TOTAL 2.7 mg/dL (0.2-2.0); BUN/CREATININE RATIO 13.33; CALCIUM SERUM 8.7 mg/dL (8.4-10.2); CREATININE SERUM 0.9 mg/dL (0.6-1.4); GLOM FILT RATE Estimated 90.6 mL/min (>60); POTASSIUM 3.7 mmol/L (3.5-5.1); PROTEIN TOTAL SERUM 6.2 g/dL (6.0-8.3)
[2017-04-21] MEDS ORDERED: K-DUR20 ME1 PO (16:32)
[2017-04-22 04:01] LABS: HEMATOCRIT 33.2 % (38.0-50.0); HEMOGLOBIN 10.9 gm/dL (13.0-16.0); MEAN CELL VOLUME 97.3 FL (83-96); MEAN CORPUSCULAR HGB CONC 32.9 g/dL (30-36); MEAN PLATELET VOLUME 9.1 FL (6.5-11.5); RED BLOOD COUNT 3.41 X10e (3.90-5.60); RED CELL DISTRIBUTION WIDTH 17.3 % (11.0-15.5); WHITE BLOOD COUNT 4.9 X10e3 (4.0-10.5)
[2017-04-22 04:15] LABS: CALCIUM SERUM 8.6 mg/dL (8.4-10.2); GLOM FILT RATE Estimated 79.8 mL/min (>60); MAGNESIUM 1.7 mg/dL (1.6-3.0); POTASSIUM 4.2 mmol/L (3.5-5.1)
[2017-04-23 08:15] LABS: HEMATOCRIT 33.1 % (38.0-50.0); HEMOGLOBIN 11.1 gm/dL (13.0-16.0); MEAN CELL VOLUME 96.5 FL (83-96); MEAN CORPUSCULAR HEMOGLOBIN 32.5 PG (28-34); MEAN CORPUSCULAR HGB CONC 33.7 g/dL (30-36); MEAN PLATELET VOLUME 8.4 FL (6.5-11.5); RED BLOOD COUNT 3.43 X10e (3.90-5.60); RED CELL DISTRIBUTION WIDTH 16.9 % (11.0-15.5); WHITE BLOOD COUNT 3.9 X10e3 (4.0-10.5)
[2017-04-23 08:55] LABS: BUN/CREATININE RATIO 14.28; CALCIUM SERUM 8.8 mg/dL (8.4-10.2); CREATININE SERUM 1.4 mg/dL (0.6-1.4); GLOM FILT RATE Estimated 53.1 mL/min (>60); POTASSIUM 4.4 mmol/L (3.5-5.1)
[2017-04-24 05:50] LABS: BUN/CREATININE RATIO 15.29; CALCIUM SERUM 8.4 mg/dL (8.4-10.2); CREATININE SERUM 1.7 mg/dL (0.6-1.4); MAGNESIUM 1.9 mg/dL (1.6-3.0); POTASSIUM 3.7 mmol/L (3.5-5.1)
== END 2017-04-25 14:28 | disposition home or self-care (01) | DRG 291 ==
LOC: CED 20:47 → CEDOF 22:30 → CED 22:30 → CEDOF 23:30 → C3A PCU 23:30
PROVIDERS: Emergency Medicine; Internal Medicine; Internal Medicine Cardiovascular Disease
DX: I13.0 Hypertensive heart and chronic kidney disease with heart failure and stage 1 through stage 4 chronic kidney disease, or unspecified chronic kidney disease (principal); I50.23 Acute on chronic systolic (congestive) heart failure; I08.1 Rheumatic disorders of both mitral and tricuspid valves; I42.8 Other cardiomyopathies; N18.3 Chronic kidney disease, stage 3 (moderate); J44.9 Chronic obstructive pulmonary disease, unspecified; Z59.0 Homelessness; Z86.711 Personal history of pulmonary embolism; Z79.01 Long term (current) use of anticoagulants; Z86.14 Personal history of Methicillin resistant Staphylococcus aureus infection
CPT/HCPCS: 36415; 71010; 80048; 80053; 80061; 80076; 82553; 83735; 83880; 84443; 84484; 85025; 85027; 85610; 85730; 93005; 94640; 94760; 99285; J2405; J3475

== ENCOUNTER → 2017-05-27 | Outpatient (CLI) | payer OTHER ==
[~2017-05-27] MED LIST changes: +LINEZOLID600 MG PO; +STIOLTO RESPIMAT4 GM INH
--- NOTE | ~2017-05-27 | CR63 ---
[facility] A Service of [facility] RADIOLOGY TEXT RESULTS PATIENT: KANG KAPOOR LOCATION: [facility] : 53 UNIT #: [id number] AGE: [address]: Bill Morales MD SEX: M ORDER DR: [id number] [facility] [address] [place], [place] [address] [id number] MR#: [id number] #: [id number] NAME: KANG KAPOOR : 1955 SEX: M STUDY DATE/TIME: 05/27/2017 10:49 UNIT: [facility] ROOM: STUDY DESCRIPTION: CR Chest 2 View Attending Physician: Bill Morales M.D. Referring Physician: Bill Morales M.D. Ordering Physician: Bill Morales M.D. Primary Care Physician: Stacey Goldman Aprn MEDICAL IMAGING REPORT This report is preliminary unless electronic signature is present EXAM PA and lateral chest INDICATION Shortness of breath today. Chest x-ray is performed in conjunction with ventilation-perfusion study. COMPARISON 04/20/2017 FINDINGS Previously noted density in the right base is no longer apparent. There is persistent curvilinear density in the right apex which may be scarring. No dense airspace consolidation. Stable cardiomegaly. There may be a trace right-sided pleural effusion. ICD. IMPRESSION 1. Previously noted density in the right lung base is no longer present. 2. There may be a trace right pleural effusion. 3. Stable cardiomegaly. Dictated by... Wilton Patiño M.D. THIS IS AN ELECTRONICALLY VERIFIED REPORT Wilton Patiño M.D. at 05/28/2017 6:59 AM Theodora TD: 05/27/2017 16:40 JOB #: [id number] MEDICAL IMAGING REPORT Page 1 of 1 COPY
--- NOTE | ~2017-05-27 | NM69 ---
[facility] A Service of [facility] RADIOLOGY TEXT RESULTS PATIENT: KANG KAPOOR LOCATION: [facility] : 51 UNIT #: [id number] AGE: [address]: Bill Morales MD SEX: M ORDER DR: [id number] [facility] [address] [place] [address] [place], [place] [address] [id number] O MR#: [id number] Acc #: [id number] NAME: KANG KAPOOR : 1955 SEX: M STUDY DATE/TIME: 05/27/2017 11:26 UNIT: [facility] ROOM: STUDY DESCRIPTION: KS Pulm Vent and Perf Attending Physician: Bill Morales M.D. Referring Physician: Bill Morales M.D. Ordering Physician: Bill Morales M.D. Primary Care Physician: Stacey Goldman Aprn MEDICAL IMAGING REPORT This report is preliminary unless electronic signature is present EXAM Ventilation-perfusion radionuclide lung scan 05/27/2017 HISTORY Embolism. PE diagnosed 2 months ago. Short of air, pacemaker, defibrillator, COPD. Following inhalation of 31.0 mCi technetium 99m aerosolized DTPA, intravenous administration 5.12 mCi technetium 99m MAA, multiple views of the thorax were obtained. COMPARISON Chest radiograph from the same date and CT pulmonary angiogram 12/04/2016 which showed bilateral lower lobe pulmonary emboli. FINDINGS The current chest radiographs show cardiac enlargement, cardiac pacemaker, no clear indication of acute pulmonary disease. Findings of underlying COPD. Heterogeneous distribution of radiotracer on both the perfusion and ventilation images. Multiple small matching perfusion ventilation defects. No perfusion ventilation mismatches. The study felt to be low probability for pulmonary embolus. IMPRESSION Low probability for pulmonary embolus. Heterogeneous distribution of radiotracer on perfusion and ventilation images with matching small perfusion ventilation defects but no perfusion ventilation mismatches. Appearance of the study likely reflects underlying chronic airway disease. If there is ongoing clinical concern for new acute pulmonary thromboembolic disease and if the patient remains a candidate for iodinated contrast material, CT pulmonary angiography could be considered. [facility] A Service [facility] RADIOLOGY TEXT RESULTS PATIENT: KANG KAPOOR LOCATION: [facility] : 51 UNIT #: [id number] AGE: [address]: Bill Morales MD SEX: M ORDER DR: Dictated by... Abner Solano M.D. THIS IS AN ELECTRONICALLY VERIFIED REPORT Abner Solano M.D. at 05/28/2017 2:07 PM BINDU/georg[place] TD: 05/27/2017 18:47 JOB #: [id number] MEDICAL IMAGING REPORT Page 1 of 1 COPY
== END | disposition home or self-care (01) ==
LOC: CNUC 05-06 10:30
DX: I26.99 Other pulmonary embolism without acute cor pulmonale (principal); I51.7 Cardiomegaly
CPT/HCPCS: 71020; 78582; A9540; A9567